=== PATIENT | female | born 1935 | race Caucasian/White ===

== ENCOUNTER 2019-02-04 20:44 | Emergency (ER) | payer MEDICARE, MEDICAID ==
[2019-02-04 21:17] LABS: #Basophils 0.1 thou/uL (0.0-0.2); #Eosinphils 0.1 thou/uL (0.0-0.7); #Lymphocytes 2.7 thou/uL (1.20-3.40); #Monocytes 0.9 thou/uL (0.11-0.59); %Basophils 0.8 % (0.0-1.0); %Eosinophils 1.3 % (0.0-10.0); %Monocytes 11.8 % (0.0-10.0); %Neutrophils 51.1 % (42.0-75.0); Hemoglobin 11.8 g/dL (12.0-16.0); Mean Corpuscular HGB CONC 32.9 g/dL (32.0-36.0); Mean Corpuscular Hemoglobin 29.5 pg (27.0-31.0); Mean Corpuscular Volume 89.7 fL (78.0-98.0); Mean Platelet Volume 8.4 fL (7.4-10.4); Platelet Count 291 thou/uL (130-400); RBC Distribution Width 13.9 % (11.5-14.5); Red Blood Cell (RBC) Count 4.01 mill/uL (4.20-5.40); White Blood Cell (WBC) Count 7.7 thou/uL (4.8-10.8)
[2019-02-04] MEDS ORDERED: Ondansetron PF 4 MG/2 ML Vial ONE (21:28)
[2019-02-04] MEDS ORDERED: Morphine 4 MG/ML VIAL ONE (21:28)
[2019-02-04 21:40] LABS: Bacteria/HPF 1+ HPF (None Seen); Bilirubin Negative (Negative); Blood, Urine 1+ (Negative); Clarity Clear (Clear); Glucose, Urine (Dipstick) Normal (Negative); Leukocyte 500 Leu/uL (Negative); Nitrite Negative (Negative); Protein, Urine (Dipstick) Negative (Neg-Trace); Squamous Epithelial 0-3 HPF (0-3); Urobilinogen Normal mg/dL (Less than 2); WBC/HPF 21-50 HPF (0-3)
[2019-02-04 21:42] LABS: ALT (SGPT) 10 U/L (8-55); AST (SGOT) 18 U/L (5-34); Albumin 4.1 g/dL (3.4-4.8); Alkaline Phosphatase 109 U/L (40-150); Anion Gap 15 mmol/L (10-20); BUN (Urea Nitrogen) 11 mg/dL (9.8-20.1); Bilirubin, Total 0.2 mg/dL (0.2-1.2); Calc. Creatinine Clearance 0 mL/min (70-130); Calcium 10.8 mg/dL (7.8-10.44); Carbon Dioxide 24 mmol/L (23-31); Chloride 101 mmol/L (98-107); Estimated GFR-MDRD 87; Globulin 3.7 g/dL (2.4-3.5); Glucose 121 mg/dL (83-110); Potassium 3.9 mmol/L (3.5-5.1); Protein, Total 7.8 g/dL (6.0-8.3); Sodium 136 mmol/L (136-145)
--- NOTE | 2019-02-04 22:48 | CT ---
EXAM: CT ABDOMEN AND PELVIS HISTORY: Urinary tract infection. Sepsis. COMPARISON: 12/06/2014, 02/27/2016 Procedure: Multiple contiguous axial images were obtained and a CT of the abdomen and pelvis with IV contrast. C oronal reformats were performed. FINDINGS: Lower Chest: Persistent septal thickening and groundglass opacities in the lung bases. Vessels: Normal caliber aorta. Heart: Enlarged. No significant pericardial fluid. Abdomen: Portal vein:Patent Gallbladder: Surgically absent. There is reservoir effect with associated intra and extrahepatic bili mario dilatation. Liver: within normal limits. Pancreas: within normal limits. Spleen: within normal limits. Adrenals: within normal limits. Kidneys: Appropriate enhancement of the renal cortices. No evidence of right-sided obstructive uropat hy. There is a calcification in the left renal cortex measuring 1 cm. There are punctate nonobstructing calculi in the lower pole the left kidney measuring 0.1-0.3 cm respectively. There is a large calculus in the left renal pelvis, measuring 1.9 cm cranial caudal dimension. There is associated mild hydronephrosis. There is stranding and prominence of the left renal pelvis. There is associated mild enhancement of the left renal pelvis. There is mild dilatation of the proximal to mid left ureter with mild enhancement. No associated obstructing calculus in the left ureter. Peritoneum: No ascites or free air, no fluid collection. Bowel: Limited evaluation due to technique. No evidence of small bowel obstruction. Ileocecal junctio n is normal. Normal caliber appendix. Scattered fecal material in the colon. Extensive diverticulosis in the left hemicolon. No diverticulitis. Mesentery and Retroperitoneum: No enlarged mesenteric or retroperitoneal lymph nodes. Abdominal Wall: within normal limits. Pelvis: Reproductive Organs: Findings compatible with hysterectomy. Pelvis: within normal limits. Bladder: within normal limits. Bones: Remote compression fractures with vertebral plana are noted in the distal thoracic spine and u pper lumbar spine. Findings are similar to previous CT. IMPRESSION: 1. Mild left-sided hydronephrosis secondary to a calculus in the left renal pelvis. There is prominen ce of the left renal pelvis with mild enhancement. There is also enhancement and mild prominence of the proximal and mid left ureter. 2. Colby effect with the dilatation of the intra and extra hepatic biliary system. 3. Diverticulosis, without evidence of diverticulitis.
[2019-02-04] MEDS ORDERED: cefTRIAXone\\ROCEPHIN 1 GM VIAL ONE (23:49)
== END 2019-02-05 00:56 | disposition home or self-care (01) ==
LOC: ERS 20:44
DX: N39.0 Urinary tract infection, site not specified (principal); E03.9 Hypothyroidism, unspecified; D50.9 Iron deficiency anemia, unspecified; E78.5 Hyperlipidemia, unspecified; K21.9 Gastro-esophageal reflux disease without esophagitis; I10 Essential (primary) hypertension; M19.90 Unspecified osteoarthritis, unspecified site
CPT/HCPCS: 51701; 74177; 80053; 81003; 81015; 83605; 85025; 87077; 87086; 87186; 96365; 96375; A4353; J0696; J2270; J2405

== ENCOUNTER 2019-02-06 14:26 | Observation (INO) | payer MEDICARE, MEDICAID ==
[2019-02-06] MEDS ORDERED: Morphine 4 MG/ML VIAL ONE (15:50)
[2019-02-06] MEDS ORDERED: Cefepime 2 GM VIAL ONE (15:50)
[2019-02-06 16:33] LABS: #Eosinphils 0.1 thou/uL (0.0-0.7); #Lymphocytes 1.8 thou/uL (1.20-3.40); #Monocytes 0.7 thou/uL (0.11-0.59); #Neutrophils 4.1 thou/uL (1.40-6.50); %Basophils 0.7 % (0.0-1.0); %Eosinophils 1.9 % (0.0-10.0); %Lymphocytes 26.6 % (21.0-51.0); %Monocytes 10.8 % (0.0-10.0); %Neutrophils 60.1 % (42.0-75.0); Hemoglobin 11.2 g/dL (12.0-16.0); Mean Corpuscular HGB CONC 32.6 g/dL (32.0-36.0); Mean Corpuscular Hemoglobin 29.6 pg (27.0-31.0); Mean Corpuscular Volume 90.9 fL (78.0-98.0); Mean Platelet Volume 8.5 fL (7.4-10.4); Platelet Count 299 thou/uL (130-400); RBC Distribution Width 13.8 % (11.5-14.5); Red Blood Cell (RBC) Count 3.79 mill/uL (4.20-5.40); White Blood Cell (WBC) Count 6.9 thou/uL (4.8-10.8)
[2019-02-06 16:36] LABS: Bilirubin Negative (Negative); Blood, Urine Trace (Negative); Clarity Clear (Clear); Glucose, Urine (Dipstick) Normal (Negative); Leukocyte 250 Leu/uL (Negative); Nitrite Negative (Negative); Protein, Urine (Dipstick) Negative (Neg-Trace); RBC/HPF 0-3 HPF (0-3); Squamous Epithelial 0-3 HPF (0-3); Urobilinogen Normal mg/dL (Less than 2); WBC/HPF 21-50 HPF (0-3)
[2019-02-06 16:39] LABS: Bacteria/HPF None Seen HPF (None Seen)
[2019-02-06 16:56] LABS: ALT (SGPT) 72 U/L (8-55); AST (SGOT) 53 U/L (5-34); Albumin 3.8 g/dL (3.4-4.8); Alkaline Phosphatase 201 U/L (40-150); Anion Gap 13 mmol/L (10-20); BUN (Urea Nitrogen) 13 mg/dL (9.8-20.1); Bilirubin, Total 0.2 mg/dL (0.2-1.2); Calc. Creatinine Clearance 0 mL/min (70-130); Calcium 10.6 mg/dL (7.8-10.44); Carbon Dioxide 25 mmol/L (23-31); Chloride 98 mmol/L (98-107); Estimated GFR-MDRD 87; Globulin 3.5 g/dL (2.4-3.5); Glucose 121 mg/dL (83-110); Lipase 13 U/L (8-78); Potassium 3.9 mmol/L (3.5-5.1); Protein, Total 7.3 g/dL (6.0-8.3); Sodium 132 mmol/L (136-145)
--- NOTE | 2019-02-06 18:06 | CT ---
CT ABDOMEN NONCONTRAST CT PELVIS NONCONTRAST: (urolithiasis protocol) DATE: 02/06/19 at 5:44 p.m. HISTORY: 83-year-old female with flank pain, generalized abdominal pain, and anorexia. COMPARISON: 02/04/19. TECHNIQUE: IV injection of iodinated contrast media: none Oral contrast media: none FINDINGS: Other than for urolithiasis, the lack of IV and oral contrast limits the evaluation. Again noted are the several calculi in the left kidney. Again noted is the moderate sized calculus wi thin the left renal pelvis. There is mild dilation of the left renal collecting system and fat strand ing representing edema at the left renal sinus. No calculus or hydronephrosis in the right kidney. Th ere are actually two calculi in the left renal pelvis, moderate sized one and a small one. They do no t reach the UPJ, where the level of obstruction appears to be. There is no calculus in the urinary bl adder which has thin, normal sharma. A large number of diverticula throughout the descending and sigmo id colon without diverticulitis. Large amount of stool throughout the colon. Diffuse dilation of the biliary tree status post cholecystectomy. No other abnormality identified, within the limitations of a noncontrast scan, involving the liver, right kidney, adrenals, pancreas, or spleen. No small bowel dilation. No pneumoperitoneum or ascites. No interval change overall. IMPRESSION: 1. Left nephrolithiasis, including calculi in the left renal lower pole, plus at least two calc melany in the left renal pelvis. 2. Mild left hydronephrosis. The degree of hydronephrosis is such that percutaneous nephrostomy would be technically very difficult. 3. No significant interval change since 02/04/19. JN Americo POS: TPC
[2019-02-06] MEDS ORDERED: Ondansetron ODT 4 MG TAB SL PRN (19:15)
[2019-02-06] MEDS ORDERED: Acetaminophen 325 MG TAB PO PRN (19:15)
[2019-02-06] MEDS ORDERED: Ondansetron PF 4 MG/2 ML Vial IVP PRN ×2 (19:15→19:52)
[2019-02-06] MEDS ORDERED: Morphine 4 MG/ML VIAL SLOW IVP PRN ×2 (19:16→20:04)
[2019-02-06] MEDS ORDERED: Senokot S 8.6-50 MG TAB PO PRN (19:52)
[2019-02-06] MEDS ORDERED: Guaifenesin DM 100-10/5 ML UDCUP PO PRN (19:52)
[2019-02-06] MEDS ORDERED: Lidocaine 5% Patch TD STA (20:04)
--- NOTE | 2019-02-06 20:58 | HP ---
REASON FOR ADMISSION: Abdominal pain. HISTORY OF PRESENTING ILLNESS: The patient gives history of having a bandlike abdominal pain in both upper quadrants. No complaints of nausea or vomiting. She has had known history of a large stone in the left side. She has seen Dr. Tolliver for this in the past. The patient is not a candidate for staged procedure for removing her 2 cm large stone in the left renal pelvis per family. They have talked about possible nephrostomy tube with lithotripsy/crushing of stones as a choice, which the family are contemplating. This bandlike abdominal pain has been there for the last 1 week. She had come 2 days back to the emergency room and was found to have had UTI and was given Macrobid. She has taken 4 tablets of it, but her abdominal pain has remained same. No complaints of urinary frequency or urgency. She wears an adult diaper. She is essentially wheelchair and bed bound. The [id number] who is here at bedside has mentioned that previous oral tablets have not worked for her and in fact, she has become septic in the past with UTI. All of this concerned them, hence came to emergency room. On arrival here, patient has had normal vital signs and normal white count. Dr. Baez has spoken to Dr. Figueredo , urologist, who will evaluate the patient in the morning. PAST MEDICAL AND SURGICAL HISTORY: History of nephrolithiasis in the past with recurrent UTIs. She has a large left renal calculi and is not a candidate for staged procedure for removing this. Hypertension, hypothyroidism, dyslipidemia, cholecystectomy, left knee surgery, hysterectomy, compression fracture involving T11, L2, L4 with diffuse osteopenia. Prior cystoscopy with right ureteral stent , chronic bedridden and wheelchair-bound status from July of 2014, left total knee replacement. PERSONAL HISTORY: Does not abuse alcohol or drugs. No history of smoking. FAMILY HISTORY: Mother in her 90s. Father in his early 80s, both of natural causes. CODE STATUS: Do not attempt to resuscitate. This was discussed with the patient at bedside and her POA, son and [id number] at bedside. CURRENT MEDICATIONS: The patient is on: 1. Norvasc 10 mg daily. 2. Aspirin 81 mg daily. 3. Colace 100 mg daily. 4. Lopid 600 mg daily. 5. Hydrocodone p.r.n. 6. Levothyroxine 75 mcg p.o. daily. 7. Lovastatin 20 mg p.o. daily. 8. Multivitamin 1 tablet once daily. 9. Oxybutynin extended release 10 mg daily. 10. Protonix 40 mg daily. 11. MiraLAX 17 g daily. ALLERGIES: TO RANITIDINE AND CODEINE. REVIEW OF SYSTEMS: CONSTITUTIONAL: Negative for weight loss or gain, ability to conduct usual activities. SKIN: Negative for rash, itching. EYES: Negative for double vision, pain. ENT/MOUTH: Negative for nose bleeding, neck stiffness, pain, tenderness. CARDIOVASCULAR: Negative for palpitations, dyspnea on exertion, orthopnea. RESPIRATORY: Negative for shortness of breath, wheezing, cough, hemoptysis, fever or night sweats. GASTROINTESTINAL: Negative for poor appetite, abdominal pain, heartburn, nausea , vomiting, constipation, or diarrhea. GENITOURINARY: Negative for urgency, frequency, dysuria, nocturia. MUSCULOSKELETAL: Negative for pain, swelling. NEUROLOGIC/PSYCHIATRIC: Negative for anxiety, depression. ALLERGY/IMMUNOLOGIC: Negative for skin rash, bleeding tendency. PHYSICAL EXAMINATION: GENERAL: The patient is 83-year-old female who is currently not in any acute distress. VITAL SIGNS: Blood pressure 120/76, pulse 86 per minute, respiratory rate 20 per minute, temperature 98.7 degrees Fahrenheit, saturating 95% on room air. NECK: Supple. No elevated JVD. HEENT: Eyes; extraocular muscles intact. Pupils reacting to light. Oral cavity mucous membranes are moist. No exudates or congestion. CARDIOVASCULAR: S1-S2 heard, regular rhythm. RESPIRATORY: Air entry 1+ bilateral. No rales, rhonchi. ABDOMEN: Soft bowel sounds heard. The patient has mild CVA tenderness in the left side. No rigidity or guarding. EXTREMITIES: No peripheral edema or calf tenderness. VASCULAR SYSTEM: Peripheral pulses 1+ bilateral. No ischemic ulcerations or gangrene. CENTRAL NERVOUS SYSTEM: No gross focal deficits noted. The patient is alert, awake, and oriented. Well psychiatric system. The patient's mood is euthymic. No hallucinations or delusions. LABORATORY DATA: White count of 6.9, H and H 11 and 34, platelet count 299 with 60% neutrophils, MCV is 90. Sodium 132, serum bicarb 25, BUN 13, creatinine 0.6, serum glucose 121. AST, ALT 53 and 72, alkaline phosphatase is 201, albumin is 3.8, and lipase is 13. UA shows shows positive leukocyte esterase, 21-50 wbc's. No bacteria seen. Urine culture drawn on 02/04/2019 is growing Klebsiella more than 100,000 , sensitive to all antibiotics except nitrofurantoin. CT of the abdomen and pelvis done shows mild left sided hydronephrosis secondary to a calculus in the left renal pelvis. There is prominence of the left renal pelvis with mild enhancement. There is also mild enhancement and prominence of the proximal and mid left ureteral reservoir effect with the dilatation of the intra and extrahepatic biliary system. Diverticulosis without evidence of diverticulitis. That was the CAT scan report on 02/04/2019. A repeat CAT scan stone protocol done today shows left nephrolithiasis including calculi in the left renal lower pole plus at least 2 calculi in the left renal pelvis. There is mild left hydronephrosis. The degree of hydronephrosis is such that percutaneous nephrostomy would be technically very difficult. CLINICAL IMPRESSION AND PLAN: The patient will be under observation on medical floor for Klebsiella urinary tract infection with history of chronic nephrolithiasis and mild left hydronephrosis. Her bandlike abdominal pain in the upper quadrants is likely related to the thoracic compression fracture. She has mild left costovertebral angle tenderness as well. The patient has had these pains for almost a week now. There is no obstructive uropathy on the CAT scan as such. Dr. Mchugh who is on-call for urology has been consulted from ER. Based on cultures, we will place her on cefepime 1 g q.12 for now and later can be given oral quinolones. Repeat blood and urine cultures have been obtained in the ER. We will continue her Norvasc, Lopid, levothyroxine, lovastatin, multivitamin, Protonix and oxybutynin as before. Gentle hydration with normal saline at 70 mL per hour. Morphine p.r.n. for pain and we will also add lidocaine patch to help with the thoracic compression fracture. We will await a urology opinion regarding her chronic stones.. If no intervention is planned, palliative care will be consulted as she is at risk for recurrent uti and sepsis with gm-ve organisms. Job ID: [id number] [facility]
[2019-02-06] MEDS ORDERED: Melatonin 3 MG TAB PO PRN (21:10)
[2019-02-06] MEDS ORDERED: Amlodipine 10 MG TAB PO SCH (21:15)
[2019-02-06] MEDS: Lidocaine 5% Patch TD SCH (21:40)
[2019-02-06] MEDS: Acetaminophen 325 MG TAB PO PRN (21:40)
[2019-02-06] MEDS: Lovastatin 20 MG TAB PO SCH (21:41)
[2019-02-06] MEDS: Sodium Chloride 0.9% 1,000 ML IV SCH (21:48)
[2019-02-06] MEDS ORDERED: Cefepime 2 GM in Sodium Chloride 0.9% 100 ML IVPB SCH (23:59)
[2019-02-07 02:18] VITALS: BMI 26.4
[2019-02-07] MEDS ORDERED: Cefepime 1 GM in Sodium Chloride 0.9% 100 ML IVPB SCH (04:00)
[2019-02-07] MEDS: Levothyroxine Sodium 75 MCG TAB PO SCH (04:22)
[2019-02-07] MEDS: Morphine 2 MG/ML SYRINGE SLOW IVP PRN ×5 (04:23→21:52)
[2019-02-07 05:12] LABS: #Basophils 0.1 thou/uL (0.0-0.2); #Eosinphils 0.2 thou/uL (0.0-0.7); #Lymphocytes 2.2 thou/uL (1.20-3.40); #Monocytes 0.8 thou/uL (0.11-0.59); #Neutrophils 3.2 thou/uL (1.40-6.50); %Eosinophils 2.3 % (0.0-10.0); %Lymphocytes 34.5 % (21.0-51.0); %Monocytes 12.8 % (0.0-10.0); %Neutrophils 49.3 % (42.0-75.0); Hemoglobin 11.3 g/dL (12.0-16.0); Mean Corpuscular Hemoglobin 29.3 pg (27.0-31.0); Mean Corpuscular Volume 91.8 fL (78.0-98.0); Mean Platelet Volume 8.1 fL (7.4-10.4); Platelet Count 302 thou/uL (130-400); RBC Distribution Width 13.8 % (11.5-14.5); Red Blood Cell (RBC) Count 3.84 mill/uL (4.20-5.40); White Blood Cell (WBC) Count 6.4 thou/uL (4.8-10.8)
[2019-02-07 05:34] LABS: Anion Gap 12 mmol/L (10-20); BUN (Urea Nitrogen) 7 mg/dL (9.8-20.1); Calc. Creatinine Clearance 71 mL/min (70-130); Calcium 9.2 mg/dL (7.8-10.44); Carbon Dioxide 25 mmol/L (23-31); Chloride 103 mmol/L (98-107); Estimated GFR-MDRD Greater than 90; Glucose 95 mg/dL (83-110); Potassium 3.4 mmol/L (3.5-5.1); Sodium 137 mmol/L (136-145)
[2019-02-07] MEDS: Polyethylene Glycol 3350 17 GM Packet PO SCH (08:56)
[2019-02-07] MEDS: Oxybutynin ER 5 MG TAB PO SCH (08:56)
[2019-02-07] MEDS: Multivit, Therapeutic 1 TAB PO SCH (08:56)
[2019-02-07] MEDS: Gemfibrozil 600 MG TAB PO SCH (08:57)
[2019-02-07] MEDS: Amlodipine 10 MG TAB PO SCH (08:57)
[2019-02-07] MEDS: Acetaminophen 325 MG TAB PO PRN ×2 (09:04→22:00)
[2019-02-07] MEDS: Enoxaparin Sodium 30 MG/0.3 ML SYRINGE SC SCH (09:31)
[2019-02-07] MEDS: Lidocaine Patch Removal TOP SCH (09:31)
--- NOTE | 2019-02-07 11:20 | CON ---
DATE OF CONSULTATION: 02/07/2019 REASON FOR CONSULTATION: Left renal calculi and urinary tract infection. REQUESTING PHYSICIAN: Dr. Guajardo. HISTORY OF PRESENT ILLNESS: Ms. Ryan is an 83-year-old female with history of urolithiasis. Her urologist is Dr. Tolliver. Three years ago, the patient underwent removal of a small distal right ureteral calculus. At that time, she was found to have a large left-sided nonobstructing stone burden. The family has elected to manage this expectantly, given concern over her ability to tolerate anesthesia for either staged ureteroscopy versus percutaneous nephrolithotomy. The patient has been followed and has done rather well. She was seen three days ago in the emergency department for some low abdominal pain. She was diagnosed with urinary tract infection and was sent now on Macrobid. She did not have improvement of her symptoms. She is essentially wheelchair and bed bound. She does not ambulate. At that time, a CT scan was performed, which demonstrated a 2 cm left renal pelvis stone and mild dilation of the left renal collecting system. There was also some lower pole stone as well. The patient's urine culture ended up growing Klebsiella with intermediate sensitivity to Macrobid. The patient was given IV antibiotics, but given her significant low abdominal pain and concern for complicated UTI, admission was recommended. A repeat CT scan demonstrated stable appearance of the stones with no worsening of hydronephrosis or dilation of the collecting system. The patient has been afebrile. Reports some nausea but no vomiting. No gross hematuria. The patient voids into a diaper. There are no other complaints. REVIEW OF SYSTEMS: Full 12-point review of systems was performed and was negative other than that mentioned in HPI. PAST MEDICAL HISTORY: Nephrolithiasis, hypertension, hypothyroidism, dyslipidemia. PAST SURGICAL HISTORY: Stone removal from right distal ureter with right ureteral stent, left total knee replacement, cholecystectomy, and hysterectomy. FAMILY HISTORY: Noncontributory. SOCIAL HISTORY: No smoking history. No alcohol use. She lives at home with family. MEDICATIONS: 1. Norvasc. 2. Aspirin 81 mg. 3. Colace. 4. Lopid. 5. Hydrocodone as needed. 6. Synthroid. 7. Lovastatin. 8. Multivitamin. 9. Oxybutynin ER 10 mg. 10. Protonix. 11. MiraLAX. ALLERGIES: RANITIDINE AND CODEINE. PHYSICAL EXAMINATION: VITAL SIGNS: Temperature is 97.6, pulse is 70 to 90, blood pressure 169/73, respirations 18, oxygen saturation 100% on room air. GENERAL: She is alert and oriented, in no apparent distress. HEENT: Normocephalic, atraumatic. NECK: Supple. No masses or lymphadenopathy. CARDIOVASCULAR: Regular rate and rhythm. PULMONARY: Breathing unlabored. No wheezing. ABDOMEN: Soft, mild tenderness to palpation over lower abdomen. No rebound or guarding. Nondistended. No suprapubic tenderness to palpation. No CVA tenderness. EXTREMITIES: Warm and well perfused. No edema. NEUROLOGIC: No focal deficits. LABORATORY DATA: White blood cell count 6.4, hemoglobin 11.3, hematocrit 35.3, platelets 302. Sodium 137, potassium 3.4, chloride 103, bicarbonate 25, BUN 7, creatinine 0.55. Urinalysis on 02/06/2019 demonstrates trace blood and 21 to 50 white blood cells per high-power field, but no bacteria. Urine culture from 02/06/2019 demonstrates no growth at 12 hours. However, culture from 02/04/2019 demonstrated Klebsiella pneumoniae with intermediate sensitivity to Macrobid, but otherwise pansensitive. RADIOLOGY DATA: CT of the abdomen and pelvis on 02/06/2019, with results as stated above. I have reviewed the films and agreed with the radiologist's interpretation. ASSESSMENT: An 83-year-old female with urinary tract infection, enlarged minimally obstructing left renal stone burden, which is chronic. PLAN: I reviewed the patient's clinical situation with her family at length. Discussed different options for complete decompression of the left renal collecting system. They routinely see Dr. Tolliver and would like to discuss this with him as well. We discussed placement of a percutaneous nephrostomy tube without definitive management of the stone burden, which would help control her pain and keep the collecting system decompressed to potentially decrease incidence of urinary tract infections. They will consider this option and discuss this with Dr. Tolliver when he returns tomorrow. Thank you, I appreciate Hospitalist Service assistance in caring for this patient. Job ID: [id number]
[2019-02-07] MEDS: Sodium Chloride 0.9% 1,000 ML IV SCH (11:44)
[2019-02-07] MEDS: cefTRIAXone\\ROCEPHIN 1 GM in Sodium Chloride 0.9% 100 ML IVPB SCH (15:23)
--- NOTE | 2019-02-07 15:41 | PDOC.PN ---
- Subjective Encounter Start Date: 02/07/19 Encounter Start Time: 15:39 Ms. Ryan was seen today in follow-up of Nephrolithiasis, and UTI. She continues to have abdominal pain, but she admits it is a bit better today than yesterday. She has some nausea, but overall ok. - Objective Resuscitation Status - Order Detail: 02/06/19 19:48 Resuscitation Status Routine Resuscitation Status: DNAR: NO Resuscitation Discussed with: d/w patient and POA son at bedside in room 7 in er MAR Reviewed: Yes Vital Signs & Weight: Vital Signs (12 hours) Temp Pulse Resp BP BP Pulse Ox 02/07/19 12:00 98.2 F 71 18 162/73 H 97 02/07/19 08:57 98 169/73 H 02/07/19 08:00 97.6 F 98 18 169/73 H 100 02/07/19 04:00 97.7 F 70 18 168/73 H 97 Weight Weight 130 lb 15.273 oz I&O: 02/06/19 02/07/19 02/08/19 06:59 06:59 06:59 Intake Total 1105 200 Output Total 1300 Balance -195 200 Result Diagrams: 02/07/19 04:46 02/07/19 04:46 Phys Exam - Physical Examination HEENT: PERRLA Respiratory: no wheezing, no rales, no rhonchi, clear to auscultation bilateral Cardiovascular: RRR, no significant murmur, no rub Gastrointestinal: soft, positive bowel sounds + diffuse tenderness, no rebound or guarding Musculoskeletal: no edema, pulses present Dx/Plan (1) Urinary tract infection Status: Acute (2) Hypertension Code(s): I10 - ESSENTIAL (PRIMARY) HYPERTENSION Status: Chronic (3) Nephrolithiasis Status: Acute - Plan * UTI- urine culture is growing Klebsiella- which is sensitive to cephalosporins - will downgrade her antibiotic to Rocephin * Nephrolithiasis- awaiting evaluation by Dr. Tolliver * HTN- blood pressure is elevated- will re-start Metoprolol *
[2019-02-07] MEDS: Melatonin 3 MG TAB PO PRN (21:53)
[2019-02-07] MEDS: Lovastatin 20 MG TAB PO SCH (21:53)
[2019-02-07] MEDS: Metoprolol Tartrate 25 MG TAB PO SCH (21:53)
[2019-02-07] MEDS: Lidocaine 5% Patch TD SCH (21:56)
[2019-02-08] MEDS: Morphine 2 MG/ML SYRINGE SLOW IVP PRN ×3 (05:29→20:53)
[2019-02-08] MEDS: Sodium Chloride 0.9% 1,000 ML IV SCH ×2 (05:30→15:52)
[2019-02-08] MEDS: Levothyroxine Sodium 75 MCG TAB PO SCH (05:32)
[2019-02-08] MEDS: Acetaminophen 325 MG TAB PO PRN ×3 (09:17→20:55)
[2019-02-08] MEDS: Amlodipine 10 MG TAB PO SCH (09:17)
[2019-02-08] MEDS: Metoprolol Tartrate 25 MG TAB PO SCH ×2 (09:18→20:56)
[2019-02-08] MEDS: Gemfibrozil 600 MG TAB PO SCH (09:18)
[2019-02-08] MEDS: Polyethylene Glycol 3350 17 GM Packet PO SCH (09:18)
[2019-02-08] MEDS: Lidocaine Patch Removal TOP SCH (09:18)
[2019-02-08] MEDS: Multivit, Therapeutic 1 TAB PO SCH (09:18)
[2019-02-08] MEDS: Oxybutynin ER 5 MG TAB PO SCH (09:18)
[2019-02-08] MEDS: Enoxaparin Sodium 30 MG/0.3 ML SYRINGE SC SCH (09:18)
[2019-02-08] MEDS: cefTRIAXone\\ROCEPHIN 1 GM in Sodium Chloride 0.9% 100 ML IVPB SCH (14:13)
--- NOTE | 2019-02-08 15:51 | PDOC.PN ---
- Subjective Encounter Start Date: 02/08/19 Encounter Start Time: 15:50 Ms. Ryan was seen today in follow-up of UTI and Nephrolithiasis. She says she is feeling a bit better today. Abdominal pain has improved - Objective Resuscitation Status - Order Detail: 02/06/19 19:48 Resuscitation Status Routine Resuscitation Status: DNAR: NO Resuscitation Discussed with: d/w patient and POA son at bedside in room 7 in er MAR Reviewed: Yes Vital Signs & Weight: Vital Signs (12 hours) Temp Pulse Resp BP BP Pulse Ox 02/08/19 11:53 98.3 F 55 L 16 147/63 H 96 02/08/19 09:17 70 183/65 H 02/08/19 08:00 98 02/08/19 07:20 97.8 F 70 18 183/65 H 98 02/08/19 04:00 97.9 F 59 L 15 171/65 H 97 Weight Weight 130 lb 15.273 oz I&O: 02/07/19 02/08/19 02/09/19 06:59 06:59 06:59 Intake Total 1105 1780 400 Output Total 1300 850 700 Balance -195 930 -300 Result Diagrams: 02/07/19 04:46 02/07/19 04:46 Phys Exam - Physical Examination HEENT: PERRLA Respiratory: no wheezing, no rales, no rhonchi, clear to auscultation bilateral Cardiovascular: RRR, no significant murmur, no rub Gastrointestinal: soft, non-tender, no distention, positive bowel sounds Musculoskeletal: no edema Neurological: non-focal Dx/Plan (1) Urinary tract infection Status: Acute (2) Hypertension Code(s): I10 - ESSENTIAL (PRIMARY) HYPERTENSION Status: Chronic (3) Nephrolithiasis Status: Acute - Plan * UTI- urine culture from 02/04 is growing Klebsiella which is henao-sensitive * Can consider transition to oral antibiotics * Nephrolithiasis- await recommendations from Dr. Tolliver- ? home today. * HTN- blood pressure is a bit elevated- will continue Amlodipine and Metoprolol , and PRM medications- further adjustments can be made by her Primary Care Provider
[2019-02-08] MEDS: Lovastatin 20 MG TAB PO SCH (20:56)
[2019-02-08] MEDS: Lidocaine 5% Patch TD SCH (20:56)
[2019-02-08] MEDS: Melatonin 3 MG TAB PO PRN (20:56)
[2019-02-09] MEDS: Levothyroxine Sodium 75 MCG TAB PO SCH (05:47)
[2019-02-09] MEDS: Sodium Chloride 0.9% 1,000 ML IV SCH (05:47)
[2019-02-09] MEDS: Morphine 2 MG/ML SYRINGE SLOW IVP PRN (05:47)
[2019-02-09] MEDS: Oxybutynin ER 5 MG TAB PO SCH (08:33)
[2019-02-09] MEDS: Multivit, Therapeutic 1 TAB PO SCH (08:34)
[2019-02-09] MEDS: Amlodipine 10 MG TAB PO SCH (08:34)
[2019-02-09] MEDS: Gemfibrozil 600 MG TAB PO SCH (08:34)
[2019-02-09] MEDS: Metoprolol Tartrate 25 MG TAB PO SCH ×2 (08:35→20:16)
[2019-02-09] MEDS: Polyethylene Glycol 3350 17 GM Packet PO SCH (08:37)
[2019-02-09] MEDS: Lidocaine Patch Removal TOP SCH (08:42)
[2019-02-09] MEDS: Enoxaparin Sodium 30 MG/0.3 ML SYRINGE SC SCH (08:42)
--- NOTE | 2019-02-09 14:35 | PDOC.PN ---
- Subjective Encounter Start Date: 02/09/19 Encounter Start Time: 14:33 Subjective: Feeling better. Abdominal pain has improved. No fever -: Admitted with worsening abdominal pain and found to have UTI/stones - Objective Resuscitation Status - Order Detail: 02/06/19 19:48 Resuscitation Status Routine Resuscitation Status: DNAR: NO Resuscitation Discussed with: d/w patient and POA son at bedside in room 7 in er Vital Signs & Weight: Vital Signs (12 hours) Temp Pulse Resp BP Pulse Ox 02/09/19 12:49 98.7 F 62 16 160/67 H 95 02/09/19 08:34 84 02/09/19 07:31 98.7 F 84 18 181/72 H 97 02/09/19 04:23 172/81 H 02/09/19 04:22 98.1 F 53 L 16 193/67 H 99 Weight Weight 130 lb 15.273 oz I&O: 02/08/19 02/09/19 02/10/19 06:59 06:59 06:59 Intake Total 1780 3110 Output Total 850 1750 Balance 930 1360 Result Diagrams: 02/07/19 04:46 02/07/19 04:46 Phys Exam - Physical Examination Constitutional: NAD elderly female in no distress HEENT: moist MMs Neck: no JVD, supple Respiratory: no wheezing, no rales, no rhonchi fair air entry bilaterally Cardiovascular: RRR Gastrointestinal: soft, non-tender, no distention, positive bowel sounds Musculoskeletal: no edema, pulses present Neurological: non-focal, moves all 4 limbs Psychiatric: A&O x 3 Dx/Plan (1) Physical deconditioning Code(s): R53.81 - OTHER MALAISE Status: Acute (2) Hydronephrosis Code(s): N13.30 - UNSPECIFIED HYDRONEPHROSIS Status: Acute (3) Nephrolithiasis Status: Acute (4) Urinary tract infection Status: Acute (5) Hypertension Code(s): I10 - ESSENTIAL (PRIMARY) HYPERTENSION Status: Chronic - Plan DC IV fluid. -: Start oral levaquin and DC IV rocephin. -: Consult PT. -: Awaiting urology input. * .
[2019-02-09] MEDS: Lovastatin 20 MG TAB PO SCH (20:17)
[2019-02-09] MEDS: Acetaminophen 325 MG TAB PO PRN (20:21)
[2019-02-09] MEDS: Lidocaine 5% Patch TD SCH (20:23)
[2019-02-09] MEDS: Melatonin 3 MG TAB PO PRN (22:14)
[2019-02-10] MEDS: Levothyroxine Sodium 75 MCG TAB PO SCH (05:36)
[2019-02-10 06:40] LABS: #Basophils 0.1 thou/uL (0.0-0.2); #Eosinphils 0.2 thou/uL (0.0-0.7); #Lymphocytes 2.4 thou/uL (1.20-3.40); #Monocytes 0.8 thou/uL (0.11-0.59); #Neutrophils 3.3 thou/uL (1.40-6.50); %Basophils 0.9 % (0.0-1.0); %Eosinophils 2.9 % (0.0-10.0); %Lymphocytes 35.9 % (21.0-51.0); %Monocytes 11.2 % (0.0-10.0); Hemoglobin 10.7 g/dL (12.0-16.0); Mean Corpuscular HGB CONC 31.6 g/dL (32.0-36.0); Mean Corpuscular Hemoglobin 28.8 pg (27.0-31.0); Mean Corpuscular Volume 91.3 fL (78.0-98.0); Mean Platelet Volume 8.1 fL (7.4-10.4); Platelet Count 317 thou/uL (130-400); RBC Distribution Width 13.9 % (11.5-14.5); Red Blood Cell (RBC) Count 3.72 mill/uL (4.20-5.40); White Blood Cell (WBC) Count 6.8 thou/uL (4.8-10.8)
[2019-02-10] MEDS: Enoxaparin Sodium 30 MG/0.3 ML SYRINGE SC SCH (06:57)
[2019-02-10 07:03] LABS: Anion Gap 9 mmol/L (10-20); BUN (Urea Nitrogen) 9 mg/dL (9.8-20.1); Calc. Creatinine Clearance 68 mL/min (70-130); Calcium 10.2 mg/dL (7.8-10.44); Carbon Dioxide 28 mmol/L (23-31); Chloride 102 mmol/L (98-107); Estimated GFR-MDRD Greater than 90; Glucose 96 mg/dL (83-110); Potassium 3.1 mmol/L (3.5-5.1); Sodium 136 mmol/L (136-145)
[2019-02-10 07:55] VITALS: BP 153/61
[2019-02-10] MEDS: Amlodipine 10 MG TAB PO SCH (08:22)
[2019-02-10] MEDS: Metoprolol Tartrate 25 MG TAB PO SCH (08:22)
[2019-02-10] MEDS: Multivit, Therapeutic 1 TAB PO SCH (08:22)
[2019-02-10] MEDS: Gemfibrozil 600 MG TAB PO SCH (08:22)
[2019-02-10] MEDS: Oxybutynin ER 5 MG TAB PO SCH (08:26)
[2019-02-10] MEDS: Acetaminophen 325 MG TAB PO PRN (08:29)
[2019-02-10] MEDS: Lidocaine 5% Patch TD SCH (08:33)
[2019-02-10] MEDS: Polyethylene Glycol 3350 17 GM Packet PO SCH (08:40)
[2019-02-10] MEDS: Lidocaine Patch Removal TOP SCH (08:45)
[2019-02-10 09:13] LABS: ALT (SGPT) 124 U/L (8-55); AST (SGOT) 50 U/L (5-34); Albumin 3.4 g/dL (3.4-4.8); Alkaline Phosphatase 220 U/L (40-150); Bilirubin, Direct 0.2 mg/dL (0.1-0.3); Bilirubin, Total 0.3 mg/dL (0.2-1.2); Magnesium 1.8 mg/dL (1.6-2.6); Protein, Total 6.3 g/dL (6.0-8.3)
--- NOTE | 2019-02-10 09:51 | PRG ---
DATE OF SERVICE: 02/10/2019 SUBJECTIVE: The patient states she is feeling okay. She still has a little bit of pain in her left side, but it has improved since starting the antibiotics. She is not having any more fevers. She denies any severe pain, nausea, or vomiting. OBJECTIVE: VITAL SIGNS: Temperature 97.8, pulse 70, respirations 18, blood pressure 183/65, saturation 98% on room air. GENERAL: No apparent distress. Communicating and alert. CARDIOVASCULAR: Regular rate and rhythm. ABDOMEN: Soft, mildly tender to palpation on the left. Nondistended. Positive bowel sounds. : No catheter. Full genitalia exam deferred. EXTREMITIES: No clubbing, cyanosis or edema. LABORATORY DATA: On Laboratory evaluation, the full set of labs are in the [facility] DX system, which I have reviewed. Of note, there are no new labs for today. ASSESSMENT AND PLAN: An 83-year-old [place] female with nephrolithiasis with an episode of pyelonephritis without obstruction. Her most recent CT does not demonstrate any type of stone that is obstructing at the moment. There is no hydronephrosis and nephrostomy tube would be difficult. I would not necessarily recommend a nephrostomy tube at this time unless she develops an obstructing stone. In that situation, the family has requested that she did not undergo any more surgical procedures and that we would place a nephrostomy tube, which she would keep in indefinitely for the rest of her life with scheduled changes on an outpatient setting. As for now, we are not sure if the stones are colonized or if they will definitely get become infective stones versus normal treatment of pyelonephritis episode. In either case, I would recommend transition to oral antibiotics in the hospital to ensure that she is tolerating her medication with good control of her infection. She should probably be treated for 2 weeks for a presumed pyelonephritis episode. I will continue to monitor and ensure that she is doing okay. She probably can be discharged once she is on an oral regimen without fevers and good control of her infection. I will see her in an outpatient setting. Job ID: [id number]
[2019-02-10] MEDS: Potassium Chloride 20 MEQ TAB PO SCH ×2 (11:22→12:05)
--- NOTE | 2019-02-10 12:29 | PDOC.PN ---
- Subjective Encounter Start Date: 02/10/19 Encounter Start Time: 12:28 Subjective: Admitted with abdominal pain which has improved. -: tolerating oral intake. - Objective Resuscitation Status - Order Detail: 02/06/19 19:48 Resuscitation Status Routine Resuscitation Status: DNAR: NO Resuscitation Discussed with: d/w patient and POA son at bedside in room 7 in er Vital Signs & Weight: Vital Signs (12 hours) Temp Pulse Resp BP Pulse Ox 02/10/19 08:22 56 L 02/10/19 07:20 98.5 F 56 L 18 153/61 H 18 L 02/10/19 04:00 97.4 F L 56 L 15 99 Weight Weight 130 lb 15.273 oz I&O: 02/09/19 02/10/19 02/11/19 06:59 06:59 06:59 Intake Total 3110 500 Output Total 1750 600 Balance 1360 -100 Result Diagrams: 02/10/19 05:58 02/10/19 05:58 Phys Exam - Physical Examination Constitutional: NAD HEENT: moist MMs Neck: no JVD, supple Respiratory: no wheezing, no rales, no rhonchi, clear to auscultation bilateral Cardiovascular: RRR soft systolic murmur. Gastrointestinal: soft, no distention, positive bowel sounds mild RUQ tenderness Musculoskeletal: no edema, pulses present Neurological: non-focal, moves all 4 limbs Psychiatric: normal affect, A&O x 3 Dx/Plan (1) Physical deconditioning Code(s): R53.81 - OTHER MALAISE Status: Acute (2) Hydronephrosis Code(s): N13.30 - UNSPECIFIED HYDRONEPHROSIS Status: Acute (3) Nephrolithiasis Status: Acute (4) Urinary tract infection Status: Acute (5) Hypertension Code(s): I10 - ESSENTIAL (PRIMARY) HYPERTENSION Status: Chronic (6) Abnormal LFTs Code(s): R94.5 - ABNORMAL RESULTS OF LIVER FUNCTION STUDIES Status: Acute (7) Hypokalemia Code(s): E87.6 - HYPOKALEMIA Status: Acute - Plan Replete serum potassium -: Get Liver US. -: Continue oral antibiotics. -: Re evaluate with liver US. * .
--- NOTE | 2019-02-10 15:21 | ULT ---
Gallbladder ultrasound: Multiple grayscale images of right upper quadrant obtained according to protocol. INDICATION: Pain FINDINGS: Liver: No focal mass Gallbladder: Absent Common bile duct is 1.6 cm which may relate to reservoir effect Ascites: None IMPRESSION: Surgically absent gallbladder. Prominent common duct may relate to reservoir effect. Recommend correl ation with biliary laboratory values
[2019-02-10 16:45] VITALS: TEMP 98.1
--- NOTE | 2019-02-11 08:05 | DIS ---
DATE OF ADMISSION: 02/06/2019 DATE OF DISCHARGE: 02/10/2019 PRIMARY CARE PHYSICIAN: Bacilio Gomes MD DISCHARGE DIAGNOSES: 1. Left-sided nephrolithiasis with mild hydronephrosis. 2. Urinary tract infection. 3. Abnormal LFTs. 4. Hypokalemia. 5. Hypertension. 6. Physical deconditioning. 7. Chronic debilitation. 8. Hypothyroidism. CONSULT: Urology. HOSPITAL COURSE: An 83-year-old female with known history of nephrolithiasis, admitted with band-like abdominal pain in both upper quadrants. The patient was recently seen in the ER and was started on Macrobid for urinary tract infection. CT scan of the abdomen and pelvis performed again showed left nephrolithiasis with mild hydronephrosis, but no significant change from prior scan of February 04, 2019. Impression of nephrolithiasis with mild obstruction and urinary tract infection was made and the patient was started on IV antibiotics. Urology consult was obtained and conservative treatment for acute infection was recommended with a view to repeating CT scan and offering invasive treatment if needed down the line. The patient also was found to have elevated liver enzymes, hence was evaluated with ultrasound of the abdomen, which showed dilatation of common bile duct with no obvious obstruction, which was thought to be reservoir effect as the patient is status post cholecystectomy. The patient improved clinically with improvement of pain and was subsequently discharged home to complete oral antibiotics. Of note, on prior visit to the ER on February 04, 2019, the patient grew Klebsiella pneumoniae and this happened to be the same bacteria obtained in prior 2 cultures earlier this year. Hospital course also was complicated by development of hypokalemia and hyponatremia, which were addressed appropriately with improvement. PHYSICAL EXAMINATION: VITAL SIGNS: Temperature 98.1, pulse 56, respiratory rate 18, SpO2 of 99% on room air, and blood pressure 153/61. GENERAL: Elderly female, in no obvious distress. Afebrile. Anicteric. Acyanotic. HEENT: Normocephalic, atraumatic. CARDIOVASCULAR: Regular rhythm and rate with normal heart sounds 1 and 2. RESPIRATORY: Fair air entry bilaterally with no obvious crackle or rhonchi or use of accessory muscles. GASTROINTESTINAL: Full, soft. Mild right upper quadrant tenderness. Bowel sound is normal. EXTREMITIES: Grossly normal looking, atraumatic, with no edema. DISPOSITION: Home with home health. CONDITION: Improved. FOLLOWUP: 1. Follow up with urologist in 3 to 4 weeks. 2. Follow up with PCP in 1 week. PCP is to repeat BMP and follow liver enzymes. DISCHARGE MEDICATIONS: 1. Levofloxacin 500 mg p.o. daily for 10 days. 2. Tramadol 50 mg t.i.d. 3. MiraLAX 17 g p.o. daily. 4. Protonix 40 mg daily. 5. Multivitamin one capsule daily. 6. Metoprolol 25 mg p.o. b.i.d. 7. Melatonin 5 mg p.o. daily at bedtime. 8. Lovastatin 50 mg p.o. daily. 9. Levothyroxine 75 mcg p.o. daily. 10. Gemfibrozil 600 mg p.o. daily. 11. Aspirin 81 mg p.o. daily. 12. Amlodipine 10 mg p.o. daily. 13. Tylenol 1000 mg q.6 p.r.n. 14. Conjugated estrogen one vaginal application every 2 weeks. Job ID: [id number]
== END 2019-02-10 17:48 | disposition home health service (06) ==
LOC: ERS 14:26 → T4-B 18:15
PROVIDERS: ADMIT Internal Medicine; ATTEND Internal Medicine
DX: N13.6 Pyonephrosis (principal); B96.1 Klebsiella pneumoniae [K. pneumoniae] as the cause of diseases classified elsewhere; R94.5 Abnormal results of liver function studies; E87.6 Hypokalemia; I10 Essential (primary) hypertension; R53.81 Other malaise; E03.9 Hypothyroidism, unspecified; E78.5 Hyperlipidemia, unspecified; Z66 Do not resuscitate; Z99.3 Dependence on wheelchair; Z88.5 Allergy status to narcotic agent; Z88.8 Allergy status to other drugs, medicaments and biological substances; Z79.82 Long term (current) use of aspirin; Z79.899 Other long term (current) drug therapy
CPT/HCPCS: 74176; 76705; 80048 ×2; 80053; 80076; 83605; 83690; 83735; 85025 ×3; 86850; 86900; 86901; 87040; 87086; 93005; 96361 ×4; 96365; 96366; 96367; 96375; 96376 ×4; 97139 ×4; 99285; G0378 ×3; 36415; 81003; 81015; A4353; J0692; J0696; J1650; J2270; J3490

== ENCOUNTER 2019-03-03 11:07 | Outpatient (CLI) | payer MEDICARE, MEDICAID ==
--- NOTE | 2019-03-03 12:57 | ULT ---
BILATERAL RENAL ULTRASOUND: 03/03/19 HISTORY: Nephrolithiasis, left flank pain. FINDINGS: The right kidney measures 10.8 cm in length and the left kidney measures 10.7 cm in length. No signif icant hydronephrosis seen. Multiple shadowing calculi are seen in the left kidney measuring 1.6 cm i n the mid portion and 2.4 cm in the inferolateral aspect. The right kidney is normal. Bilateral urete ral jets are present in the urinary bladder which appears grossly unremarkable. IMPRESSION: Left sided renal calculi without high grade obstruction. POS: [facility]
== END 2019-03-03 11:08 | disposition home or self-care (01) ==
LOC: SCSULT 11:07
PROVIDERS: ATTEND Urology
DX: N20.0 Calculus of kidney (principal)
CPT/HCPCS: 76770

== ENCOUNTER 2019-04-01 08:25 | Outpatient (CLI) | payer MEDICARE, MEDICAID ==
[2019-04-01 11:31] LABS: Hemoglobin 13.1 g/dL (12.0-16.0); Mean Corpuscular HGB CONC 32.9 g/dL (32.0-36.0); Mean Corpuscular Hemoglobin 28.6 pg (27.0-31.0); Mean Platelet Volume 9.1 fL (7.4-10.4); Platelet Count 285 thou/uL (130-400); RBC Distribution Width 13.6 % (11.5-14.5); Red Blood Cell (RBC) Count 4.58 mill/uL (4.20-5.40); White Blood Cell (WBC) Count 8.4 thou/uL (4.8-10.8)
[2019-04-01 11:39] LABS: Bilirubin Negative (Negative); Blood, Urine 1+ (Negative); Clarity Turbid (Clear); Glucose, Urine (Dipstick) Normal (Negative); Leukocyte 500 Leu/uL (Negative); Nitrite Negative (Negative); Protein, Urine (Dipstick) Negative (Neg-Trace); Urobilinogen Normal mg/dL (Less than 2); WBC/HPF 21-50 HPF (0-3)
[2019-04-01 11:40] LABS: Bacteria/HPF 1+ HPF (None Seen)
[2019-04-01 11:47] LABS: PTT 28.4 SEC (22.9-36.1); Prothrombin Time 13.2 SEC (12.0-14.7)
[2019-04-01 11:57] LABS: Anion Gap 13 mmol/L (10-20); BUN (Urea Nitrogen) 13 mg/dL (9.8-20.1); Calc. Creatinine Clearance 0 mL/min (70-130); Calcium 10.7 mg/dL (7.8-10.44); Carbon Dioxide 23 mmol/L (23-31); Chloride 101 mmol/L (98-107); Estimated GFR-MDRD 85; Glucose 116 mg/dL (83-110); Potassium 4.2 mmol/L (3.5-5.1); Sodium 133 mmol/L (136-145)
== END 2019-04-01 08:26 | disposition home or self-care (01) ==
LOC: LABBT 08:25
PROVIDERS: ATTEND Urology
DX: Z01.818 Encounter for other preprocedural examination (principal); N20.0 Calculus of kidney
CPT/HCPCS: 80048; 81001; 85027; 85610; 85730; 87077; 87086; 93005; 93010

== ENCOUNTER 2019-04-08 07:41 | Day surgery (SDC) | payer MEDICARE, MEDICAID ==
[2019-04-01 10:23] VITALS: BMI 24.4
[2019-04-08] MEDS ORDERED: Iothalamate Meglumine 60% 50 ML VIAL FS ONE (08:31)
[2019-04-08] MEDS ORDERED: B & O ONE (08:34)
[2019-04-08] MEDS ORDERED: Levofloxacin 500 mg/D5W 100 ml Premix Bag ONE (08:45)
[2019-04-08] MEDS ORDERED: ePHEDrine 50 MG/ML VIAL ONE (12:54)
[2019-04-08] MEDS ORDERED: Lidocaine 1% PF 5 ML VIAL ONE (12:54)
[2019-04-08] MEDS ORDERED: PROPOFOL 200 MG/20 ML VIAL ONE (12:54)
--- NOTE | 2019-04-08 13:28 | OP ---
DATE OF PROCEDURE: 04/08/2019 SERVICE: Urology. PREOPERATIVE DIAGNOSIS: Left nephrolithiasis. POSTOPERATIVE DIAGNOSIS: Left nephrolithiasis. PROCEDURES PERFORMED: Left ureteroscopy, laser lithotripsy, and placement of a 6 x 24 double-J stent. INDICATIONS FOR PROCEDURE: Ms. Ryan is an 83-year-old [place] female, who I have known for a long history of left-sided stones. Due to her age, we had elected not for pursuing any surgical intervention, but she became symptomatic and due to significant degree and quality of life, she elected to have ureteroscopy on the left side with removal of as much stone as possible. We discussed all risks and benefits, and she has agreed to proceed forward. DESCRIPTION OF PROCEDURE: After identification of armband and verification of consent, the patient was brought back to the operating room, where she underwent general anesthesia with endotracheal intubation. She was then placed in dorsal lithotomy position, prepped and draped in usual sterile fashion. After appropriate time-out, a lubricated 22-Macedonian rigid cystoscope was introduced per urethra into the bladder. Attention was turned toward the left ureteral orifice, which was cannulated with a 0.035 Sensor wire up to the level of the kidney. The cystoscope was then removed after draining the bladder, and a dual-lumen catheter advanced over the Sensor wire up to the level of the proximal ureter. An Amplatz Super Stiff wire was then fed through the second lumen up into the kidney and then the dual-lumen removed. The Sensor wire was then affixed to the drapes as a safety wire. An 11/13 x 28 cm ureteral access sheath was advanced over the Super Stiff wire up to the level the proximal ureter. The inner cannula and the Super Stiff wire were then removed leaving the outer sheath and Sensor wire in place as a safety wire. A flexible digital ureteroscope was then passed up the left ureteral access sheath up into the kidney. The stone was immediately apparent within the renal pelvis with a significant amount of inflammation and edema of the renal pelvis. Using the ball-tip 273 micron laser fiber dusting setting, the stone was completely fragmented. An additional lower pole stone was also identified, which was also fragmented. The remaining pieces were then popcorned until they were approximately a millimeter or less in size. All fragments were broken to this size. Thorough inspection of the kidney did not reveal any fragments that were over 1 to 2 mm in size with the vast majority being submillimeter or a millimeter only. I did feel that these should pass easily and due to the patient's age and to avoid prolonged anesthesia, I felt that a prolonged time in the operating room, basketing was probably unnecessary. Final pyeloscopy did not demonstrate any other large nephrolithiasis. Pull-back ureteroscopy was employed. No additional stones were found within the ureter. The ureteroscope was then removed along with the sheath, and the cystoscope was then backloaded over the Sensor wire back into the bladder. A 6 x 24 double-J stent was advanced over the Sensor wire up to the level of the kidney. The wire was removed leaving a partial curl in the kidney and a good curl in the bladder. The bladder was then emptied, and the cystoscope was removed. The patient was then awakened, taken to PACU for recovery in stable condition. COMPLICATIONS: None. ESTIMATED BLOOD LOSS: Minimal. RETAINED TUBES AND DRAINS: 6 x 24 double-J stent on the left with no string. SPECIMENS: None. DISPOSITION: The patient will be discharged home and follow up with me in approximately 1 week for cysto stent removal. Job ID: [id number]
== END 2019-04-08 12:35 | disposition home or self-care (01) ==
LOC: SDC 07:41
PROVIDERS: ATTEND Urology
PROC: 0TF48ZZ Fragmentation in Left Kidney Pelvis, Via Natural or Artificial Opening Endoscopic (ICD-10-PCS; principal; 2019-04-08)
PROC: 0T778DZ Dilation of Left Ureter with Intraluminal Device, Via Natural or Artificial Opening Endoscopic (ICD-10-PCS; 2019-04-08)
DX: N20.0 Calculus of kidney (principal); I10 Essential (primary) hypertension; E03.9 Hypothyroidism, unspecified; E78.5 Hyperlipidemia, unspecified; M19.90 Unspecified osteoarthritis, unspecified site; Z79.82 Long term (current) use of aspirin; Z79.899 Other long term (current) drug therapy; Z88.5 Allergy status to narcotic agent; Z88.8 Allergy status to other drugs, medicaments and biological substances
CPT/HCPCS: 52356; C1758; C1769; J1956

== ENCOUNTER 2019-04-12 03:29 | Observation (INO) | payer MEDICARE, MEDICAID ==
[2019-04-12 04:14] LABS: Hemoglobin 5.2 g/dL (12.0-16.0); Mean Corpuscular HGB CONC 33.2 g/dL (32.0-36.0); Mean Corpuscular Hemoglobin 29.2 pg (27.0-31.0); Mean Corpuscular Volume 87.8 fL (78.0-98.0); Mean Platelet Volume 5.5 fL (7.4-10.4); Platelet Count 118 thou/uL (130-400); Red Blood Cell (RBC) Count 1.79 mill/uL (4.20-5.40); White Blood Cell (WBC) Count 3.1 thou/uL (4.8-10.8)
[2019-04-12 04:29] LABS: ALT (SGPT) 12 U/L (8-55); AST (SGOT) 7 U/L (5-34); Albumin 1.2 g/dL (3.4-4.8); Alkaline Phosphatase 47 U/L (40-150); Anion Gap 4 mmol/L (10-20); BUN (Urea Nitrogen) Less than 4 mg/dL (9.8-20.1); Bilirubin, Total Less than 0.2 mg/dL (0.2-1.2); Calc. Creatinine Clearance 0 mL/min (70-130); Estimated GFR-MDRD Greater than 90; Globulin 0.8 g/dL (2.4-3.5); Sodium 144 mmol/L (136-145)
[2019-04-12 04:33] LABS: #Eosinphils 0.1 thou/uL (0.0-0.7); #Lymphocytes 1.1 thou/uL (1.20-3.40); #Monocytes 0.3 thou/uL (0.11-0.59); #Neutrophils 1.5 thou/uL (1.40-6.50); %Basophils 0.6 % (0.0-1.0); %Eosinophils 2.3 % (0.0-10.0); %Lymphocytes 36.7 % (21.0-51.0); %Monocytes 10.6 % (0.0-10.0); %Neutrophils 49.8 % (42.0-75.0); Platelet Morphology Comment Appears Decreased
[2019-04-12 04:35] LABS: Bacteria/HPF 1+ HPF (None Seen); Bilirubin Negative (Negative); Blood, Urine 2+ (Negative); Clarity Clear (Clear); Glucose, Urine (Dipstick) Normal (Negative); Leukocyte 500 Leu/uL (Negative); Nitrite Negative (Negative); Protein, Urine (Dipstick) 30 mg/dL (Neg-Trace); RBC/HPF 21-50 HPF (0-3); Squamous Epithelial 0-3 HPF (0-3); Urobilinogen Normal mg/dL (Less than 2); WBC/HPF 21-50 HPF (0-3)
[2019-04-12 04:43] LABS: Calcium 3.3 mg/dL (7.8-10.44); Carbon Dioxide 9 mmol/L (23-31); Chloride 132 mmol/L (98-107); Glucose 41 mg/dL (83-110); Potassium 1.1 mmol/L (3.5-5.1)
[2019-04-12 06:20] LABS: Mean Corpuscular HGB CONC 32.7 g/dL (32.0-36.0); Mean Corpuscular Hemoglobin 28.3 pg (27.0-31.0); Mean Corpuscular Volume 86.6 fL (78.0-98.0); Mean Platelet Volume 9.2 fL (7.4-10.4); Platelet Count 232 thou/uL (130-400); RBC Distribution Width 13.5 % (11.5-14.5); Red Blood Cell (RBC) Count 4.23 mill/uL (4.20-5.40)
[2019-04-12 06:40] LABS: Eosinophils 2 % (0-10); Lymphocytes 28 % (21-51); MDiff Complete? YES; Monocytes 13 % (0-10); Neutrophil 57 % (42-75); Platelet Morphology Comment Appears Adequate
[2019-04-12 06:42] LABS: ALT (SGPT) 40 U/L (8-55); AST (SGOT) 25 U/L (5-34); Albumin 3.7 g/dL (3.4-4.8); Alkaline Phosphatase 142 U/L (40-150); Anion Gap 11 mmol/L (10-20); BUN (Urea Nitrogen) 7 mg/dL (9.8-20.1); Bilirubin, Total 0.3 mg/dL (0.2-1.2); Calc. Creatinine Clearance 0 mL/min (70-130); Calcium 10.7 mg/dL (7.8-10.44); Carbon Dioxide 23 mmol/L (23-31); Chloride 104 mmol/L (98-107); Estimated GFR-MDRD Greater than 90; Glucose 113 mg/dL (83-110); Potassium 3.3 mmol/L (3.5-5.1); Protein, Total 6.7 g/dL (6.0-8.3); Sodium 135 mmol/L (136-145)
[2019-04-12 07:23] LABS: Troponin I Less than 0.010 ng/mL (< 0.028)
--- NOTE | 2019-04-12 07:34 | RAD ---
Portable frontal chest radiograph: 04/12/2019 COMPARISON: 08/31/2015 HISTORY: Cough, weakness, nausea FINDINGS: Lungs are clear. Stable prominence of the cardiac silhouette. Stable degenerative change of both shoulders present. IMPRESSION: No acute findings.
[2019-04-12 07:42] VITALS: BMI 23.4
[2019-04-12] MEDS ORDERED: Ondansetron ODT 4 MG TAB PO PRN (08:24)
[2019-04-12] MEDS ORDERED: Senokot S 8.6-50 MG TAB PO PRN (08:24)
[2019-04-12] MEDS ORDERED: Acetaminophen 325 MG TAB PO PRN (08:24)
[2019-04-12] MEDS ORDERED: Ondansetron PF 4 MG/2 ML Vial IVP PRN (08:24)
[2019-04-12] MEDS ORDERED: Sodium Chloride 0.9% 1,000 ML IV SCH (08:30)
[2019-04-12] MEDS: Amlodipine 10 MG TAB PO SCH ×2 (09:07→16:24)
[2019-04-12] MEDS: Metoprolol Tartrate 25 MG TAB PO SCH ×2 (09:08→20:02)
[2019-04-12] MEDS: Betamethasone 0.1% Cream 15 GM TUBE TOP SCH ×3 (10:14→19:56)
[2019-04-12] MEDS: Pantoprazole 40 MG VIAL IVP SCH (10:14)
[2019-04-12] MEDS: NS 0.9% w/ 40 MEQ KCL 1,000 ML IV SCH ×2 (10:14→23:00)
[2019-04-12] MEDS: cefTRIAXone\\ROCEPHIN 1 GM in Sodium Chloride 0.9% 100 ML IVPB SCH (10:14)
--- NOTE | 2019-04-12 10:39 | HP ---
PRIMARY CARE PHYSICIAN: Bacilio Gomes MD HISTORY OF PRESENT ILLNESS: Ms. Ryan is an 83-year-old female, who reported to the emergency room today for past medical history pertinent for hypothyroidism, hypertension, GERD, recurrent UTIs, kidney stones and has had a 3-day history of nausea, worsening weakness with cough following surgery for a kidney stone removal under general anesthesia last week. Daughter is primary caregiver and is a it business analyst for the patient as she does not speak much Latvian. Daughter reports that after she takes the Levaquin, she complains of an upset stomach and has been nauseated while she has been on it and has vomited several times. Daughter reports that she has been much weaker over the last several days and normal. Reports that she is typically bed-bound, but does get up with some assistance and transferred to her wheelchair, but the last couple of days, she has been unable to do that. Overnight, she complained of just generally not feeling well and asked her daughter to bring her to the emergency room to be checked out. CBC largely unremarkable. Sodium low at 135, potassium 3.3, glucose 113, calcium 10.7. Troponin x2 is less than 0.010 and is negative. It is noted that initial blood draw on record at 4 a.m. this morning must have been coagulated as it was repeated 2 hours later and lab values are remarkably different. Urine positive for protein, blood, leukocyte esterase at 500, red blood cells, white blood cells, crystals, and urine bacteria +1, that has been sent off for culture. The patient has a long history per daughter of chronic UTIs caused by the kidney stones. Dr. Tolliver reportedly decided that she needed the stones removed and took her to same-day surgery last week, where he performed a left ureteroscopy, laser lithotripsy and placement of a 6 x 24 double-J stent. Per daughter, she has an appointment on Friday of this week to get that stent removed. The patient was not given any medications in ER and admitted to the medical unit for further evaluation. PAST MEDICAL AND SURGICAL HISTORY: Nephrolithiasis, recurrent UTIs, hypertension, hypothyroidism, dyslipidemia. She has had a cholecystectomy, left knee surgery, hysterectomy, compression fracture involving T11, L2, L4 with diffuse osteopenia. She has had a prior cystoscopy with right ureteral stent. She is chronically bedridden with a wheelchair-bound status from July of 2014 and has had a left total knee replacement. FAMILY HISTORY: Mother in her 90s, father in his early 80s, both of natural causes. Code status is do not resuscitate. This was discussed with the patient at the bedside and her MPOA daughter at the bedside as well. SOCIAL HISTORY: The patient has no alcohol or drug history. Has no smoking history. MEDICATIONS: 1. Norvasc 10 mg p.o. daily. 2. Hydrocodone 5/325 one tablet p.o. q.6 hours. 3. Levothyroxine 75 mcg p.o. daily. 4. Levaquin 500 mg p.o. daily. The patient has taken 5 out of the 7. 5. Lovastatin 20 mg p.o. q.p.m. 6. Lopressor 25 mg p.o. b.i.d. 7. Protonix 40 mg p.o. daily. 8. Triamcinolone 0.5% cream topical b.i.d.. ALLERGIES: ZANTAC AND CODEINE. REVIEW OF SYSTEMS: CONSTITUTIONAL: Daughter reports that the patient has lost about 10 pounds in the last couple of weeks. Has been profoundly weak, unable to perform her normal activities. She said she does not want to do much other than lying in the bed. Denies any chest pain. Reports some shortness of breath, which is intermittent. GASTROINTESTINAL: Poor appetite, intermittent abdominal pain, nausea, vomiting. Reports that she had diarrhea initially after anesthesia last week, but that has since resolved. Last good bowel movement was yesterday. : Negative for urgency, frequency, or dysuria. MUSCULOSKELETAL: Generalized weakness. No swelling. No pain. All other systems reviewed and are negative unless mentioned in the HPI. PHYSICAL EXAMINATION: VITAL SIGNS: Temp is 98.4, pulse is 86, respirations are 16, pO2 saturations are 99% on room air, blood pressure is 155/71. GENERAL: The patient appears in no distress. She is alert and oriented to person, place, and time. HEENT: Head is atraumatic and normocephalic. Eyes, pupils are equally round and reactive to light. Extraocular muscles are intact. ENT; mouth exam is normal. Mucous membranes are dry. RESPIRATORY/CHEST: No respiratory distress. Breath sounds are clear. CARDIOVASCULAR: Regular heart rate and rhythm. Heart sounds are normal. ABDOMEN: Diffuse tenderness, but no rebound, no guarding. BACK: There is some mild tenderness with flexion. EXTREMITIES: Upper extremity, normal inspection, normal range of motion. Radial pulses equal bilaterally. Lower extremity, normal inspection, normal range of motion. Pedal pulses equal bilaterally. NEURO: Speech is clear. The patient is oriented to person, place, and time. There is no focal motor or sensory deficits. PSYCH: The patient is oriented to person, place, and time. She has a normal affect. IMAGING STUDIES: EKG in the emergency room shows a normal sinus rhythm, beats per minute 74. Has a left anterior fascicular block. ASSESSMENT AND PLAN: 1. Generalized weakness, dehydration, hypokalemia. We will replenish fluids, gentle hydration, normal saline with 40 of mEq of KCl over 70 mL per hour. We will ask PT, OT, Speech to evaluate the patient. Daughter states that they are really not interested in any inpatient rehab and would like to take the patient home with potentially prison home health, PT, OT if appropriate. 2. Urinalysis positive for leukocyte esterase, white blood cell count, and 1+ bacteria. This has been sent off for culture. The patient has not finished the Levaquin that Dr. Tolliver had wanted her to do for 7 days. Daughter is convinced that this medication is causing a lot of her symptoms and does not want her to have anymore. We have changed this to Rocephin 1 g q.24 hours pending the culture results. On her last culture, she was positive for Klebsiella, which was sensitive to Rocephin, so we will do this and await the culture results. 3. Some dysphagia. Per daughter, when she drinks water, she coughs and spit some of the water back up. So, she is n.p.o. until she is evaluated by Speech to make sure that she has not had any complications from the general surgery and intubation last week. Chest x-ray looks clear. There is no sign of any pneumonia or aspiration pneumonia. 4. Hypothyroidism. We will continue home medications. 5. Hypertension. We will trend. Restart home medications. 6. Dyslipidemia. We will restart home medications. 7. Deep venous thrombosis and gastrointestinal prophylaxis have been started. 8. Hospital course is dependent on clinical findings. Job ID: [id number]
[2019-04-12 11:06] LABS: Troponin I 0.011 ng/mL (< 0.028)
[2019-04-12] MEDS ORDERED: Simvastatin 5 MG TAB PO SCH (17:00)
[2019-04-12] MEDS: HYDROcodone/Acetaminophen 5/325 mg Tablet PO PRN (19:50)
[2019-04-13] MEDS: HYDROcodone/Acetaminophen 5/325 mg Tablet PO PRN ×2 (01:39→08:47)
[2019-04-13] MEDS ORDERED: Levothyroxine Sodium 75 MCG TAB PO SCH (06:00)
[2019-04-13 06:15] LABS: #Basophils 0.1 thou/uL (0.0-0.2); #Eosinphils 0.4 thou/uL (0.0-0.7); #Lymphocytes 2.9 thou/uL (1.20-3.40); #Monocytes 0.9 thou/uL (0.11-0.59); #Neutrophils 3.4 thou/uL (1.40-6.50); %Basophils 0.8 % (0.0-1.0); %Eosinophils 4.8 % (0.0-10.0); %Lymphocytes 37.9 % (21.0-51.0); %Monocytes 11.4 % (0.0-10.0); Hemoglobin 11.6 g/dL (12.0-16.0); Mean Corpuscular HGB CONC 32.8 g/dL (32.0-36.0); Mean Corpuscular Hemoglobin 28.3 pg (27.0-31.0); Mean Corpuscular Volume 86.2 fL (78.0-98.0); Mean Platelet Volume 8.5 fL (7.4-10.4); Platelet Count 274 thou/uL (130-400); RBC Distribution Width 13.5 % (11.5-14.5); Red Blood Cell (RBC) Count 4.09 mill/uL (4.20-5.40); White Blood Cell (WBC) Count 7.6 thou/uL (4.8-10.8)
[2019-04-13 06:24] LABS: Anion Gap 10 mmol/L (10-20); BUN (Urea Nitrogen) 6 mg/dL (9.8-20.1); Calc. Creatinine Clearance 63 mL/min (70-130); Calcium 9.7 mg/dL (7.8-10.44); Carbon Dioxide 21 mmol/L (23-31); Chloride 107 mmol/L (98-107); Estimated GFR-MDRD Greater than 90; Glucose 92 mg/dL (83-110); Potassium 4.3 mmol/L (3.5-5.1); Sodium 134 mmol/L (136-145)
[2019-04-13 07:42] VITALS: BP 92/54; TEMP 98.1
[2019-04-13] MEDS: Metoprolol Tartrate 25 MG TAB PO SCH (08:50)
[2019-04-13] MEDS: Amlodipine 10 MG TAB PO SCH (08:50)
[2019-04-13] MEDS: Betamethasone 0.1% Cream 15 GM TUBE TOP SCH (08:51)
--- NOTE | 2019-04-13 08:51 | PDOC.HOSPP ---
- Subjective Encounter Date: 04/13/19 Encounter Time: 08:49 Subjective: alert, improved - Objective Vital Signs & Weight: Vital Signs (12 hours) Temp Pulse Resp BP Pulse Ox 04/13/19 07:40 98.1 F 64 20 92/54 L 97 04/13/19 04:30 162/64 H 04/13/19 04:00 97.6 F 56 L 16 170/68 H 96 04/13/19 00:00 97.9 F 57 L 16 145/72 H 97 Weight Weight 120 lb I&O: 04/12/19 04/13/19 04/14/19 06:59 06:59 06:59 Intake Total 2430 Balance 2430 Result Diagrams: 04/13/19 05:47 04/13/19 05:47 Hospitalist ROS - Medication Medications: Active Medications Generic Name Dose Route Start Last Admin Trade Name Freq PRN Reason Stop Dose Admin Hydrocodone Bitart/Acetaminophen 1 tab 04/12/19 08:24 04/13/19 01:39 [place] 5/325 PO 1 tab Q4H PRN Administration Moderate Pain (4-6) Amlodipine Besylate 10 mg 04/12/19 09:00 04/12/19 16:24 Norvasc PO 10 mg DAILY LAWRENCE Administration Betamethasone Valerate 0 gm 04/12/19 09:00 04/12/19 19:56 Valisone 0.1% Cream TOP Not Given BID LAWRENCE Ceftriaxone Sodium 1 gm/ 100 mls @ 200 mls/hr 04/12/19 10:00 04/12/19 10:14 Sodium Chloride IVPB 100 mls 1000 LAWRENCE Administration Potassium Chloride/Sodium Chloride 1,000 mls @ 75 mls/hr 04/12/19 09:00 04/12 23:00 Ns 0.9% W/ 40 Meq Kcl IV 1,000 mls .[id number] LAWRENCE Administration Levothyroxine Sodium 75 mcg 04/13/19 06:00 04/13/19 05:29 Synthroid PO 75 mcg 0600 LAWRENCE Administration Metoprolol Tartrate 25 mg 04/12/19 09:00 04/12/19 20:02 Lopressor PO 25 mg BID LAWRENCE Administration Pantoprazole Sodium 40 mg 04/12/19 09:00 04/12/19 10:14 Protonix IVP 40 mg DAILY LAWRENCE Administration Simvastatin 10 mg 04/12/19 17:00 04/12/19 16:24 Zocor PO 10 mg QPM-WM LAWRENCE Administration - Exam Neck: no JVD Heart: RRR, no murmur Respiratory: CTAB Gastrointestinal: soft, normal bowel sounds Extremities: no edema Hosp A/P (1) Weakness Code(s): R53.1 - WEAKNESS Status: Acute (2) Nephrolithiasis Status: Chronic (3) Urinary tract infection Status: Acute Qualifiers: Urinary tract infection type: site unspecified (4) Hypertension Code(s): I10 - ESSENTIAL (PRIMARY) HYPERTENSION Status: Chronic Qualifiers: Hypertension type: essential hypertension Qualified Code(s): I10 - Essential (primary) hypertension - Plan on iv rocephin, urine C&S no growth, discuss weth family
[2019-04-13] MEDS: Pantoprazole 40 MG VIAL IVP SCH (08:57)
[2019-04-13] MEDS ORDERED: Polyethylene Glycol 3350 17 GM Packet PO SCH (09:00)
[2019-04-13] MEDS ORDERED: Preparation H Ointment 57 gram tube TOP SCH (09:00)
[2019-04-13] MEDS: cefTRIAXone\\ROCEPHIN 1 GM in Sodium Chloride 0.9% 100 ML IVPB SCH (09:00)
--- NOTE | 2019-04-13 11:06 | DIS ---
DATE OF ADMISSION: 04/12/2019 DATE OF DISCHARGE: 04/13/2019 PRIMARY CARE PROVIDER: Dr. Bacilio Gomes. DISPOSITION: Discharged home. FINAL DIAGNOSES: Urinary tract infection, nephrolithiasis, nausea and vomiting, weakness, hypertension. DISCHARGE MEDICATIONS: 1. MiraLAX 17 g in water daily. 2. Amlodipine 10 mg a day. 3. [place] 5/325 one every 8 hours as needed for pain. 4. Synthroid 75 mcg a day. 5. Protonix 40 mg a day. 6. Metoprolol 25 mg twice a day. 7. Lovastatin 20 mg a day. ALLERGIES: RANITIDINE, CODEINE. PENDING AT THE TIME OF DISCHARGE: Her urine culture is no growth at 1200 hours. It remains to be seen whether there is further change. CODE STATUS: DNAR. DIET: As tolerated. HOSPITAL COURSE: The patient admitted to [facility] through [facility] with weakness, nausea. The patient had been on Levaquin for a urinary tract infection. The patient's daughter thought that the symptoms were concurrent with the Levaquin. Her laboratory; white count was 7.0, hemoglobin 12.0, platelet count 232,000. Chemistries; 135 sodium, 3.3 potassium and followup 4.3, chloride 104, CO2 of 23, BUN 7, creatinine 0.61. Liver function tests normal. As I mentioned before, the urine culture was negative. The patient has an appointment with Dr. Tolliver at 3 o'clock this afternoon. She is being discharged off the Levaquin, having received 2 doses of IV Rocephin for followup with Dr. Tolliver this afternoon. No formal consultations. No procedures. Job ID: [id number]
--- NOTE | 2019-04-14 00:07 | CON ---
DATE OF CONSULTATION: 04/12/2019 CONSULTING SERVICE: Family Medicine. REASON FOR CONSULTATION: Recent ureteroscopy with generalized weakness. HISTORY OF PRESENT ILLNESS: Mrs. Ryan is an 83-year-old female who is well known to me for a previous history of nephrolithiasis and recurrent urinary tract infections. She recently underwent a left-sided ureteroscopy with removal of a large amount of stone material and placement of ureteral stent. I had already discussed with the daughter who is her primary caregiver that the patient would probably experience generalized weakness as she did with her last surgery and may potentially have a significant amount of discomfort. I did put her on levofloxacin around the time of her procedure given chronic asymptomatic bacteriuria. She had polymicrobial growth on preoperative urine culture. The patient was taking the antibiotics for the surgery, but after surgery stated that she became increasingly more nauseated with the antibiotics and could not tolerate them anymore. With significant nausea and vomiting and poor p.o. intake, she became extremely weak and dehydrated. She started having malaise and not feeling well and came into the emergency room where she was admitted to the hospital. She currently still has her stent in which is causing a significant amount of discomfort. After receiving IV fluids and IV antibiotics, she states she is feeling much better. She does wish to have her stent removed, which is currently scheduled to be removed this Friday. ALLERGIES: 1. ZANTAC. 2. CODEINE. 3. INTOLERANCE TO LEVOFLOXACIN WITHOUT ALLERGY. HOME MEDICATIONS: 1. Norvasc. 2. Hydrocodone 5/325 mg. 3. Levothyroxine. 4. Levaquin. 5. Lovastatin. 6. Lopressor. 7. Protonix. 8. Triamcinolone cream. 9. . 10. MiraLAX. PAST MEDICAL HISTORY: 1. Nephrolithiasis. 2. Recurrent UTIs. 3. Hypertension. 4. Hypothyroidism. 5. Dyslipidemia. 6. Significant weakness. 7. Wheelchair confined and bedridden. 8. Osteoarthritis. PAST SURGICAL HISTORY: 1. Ureteroscopy. 2. Left knee replacement. 3. Cholecystectomy. 4. Hysterectomy. FAMILY HISTORY: Not significant for nephrolithiasis. SOCIAL HISTORY: The patient denies any alcohol, drug history, or illicit smoking history. She lives with her daughter. REVIEW OF SYSTEMS: A 12-point review of systems reviewed and negative other than what was commented on the HPI. PHYSICAL EXAMINATION: VITAL SIGNS: Temperature 98.4, pulse 86, respirations 16, blood pressure 155/71, and saturation 99% on room air. GENERAL: No apparent distress. Appears a little uncomfortable, but is answering questions appropriately. Appears stated age. HEENT: Normocephalic, atraumatic. Pupils are symmetric and round. Sclerae are nonicteric. Moist mucous membranes. Trachea is midline. CARDIOVASCULAR: Regular rate and rhythm. Normal S1 and S2, symmetric pulses. CHEST: No increased work of breathing. Clear anteriorly. Symmetric expansion of the lungs. ABDOMEN: Soft, mildly tender to palpation especially on the left. No organomegaly. Positive bowel sounds. No rebound or guarding. Mild suprapubic tenderness. : Deferred at this time. EXTREMITIES: No clubbing, cyanosis, or edema. SKIN: Warm and dry. No rashes or lesions. Poor turgor. MUSCULOSKELETAL: No joint deformities or joint erythema noted. There is a knee replacement on the left knee with well-healed scar. Range of motion is somewhat limited, but the patient is moving all extremities equally. NEUROLOGIC: Cranial nerves 2 through 12 are grossly intact. No focal or sensory motor deficits identified. PSYCHIATRIC: Alert, oriented x3. Appropriate mood and affect. LABORATORY EVALUATION: The full set of labs are in the [facility] system, which I have reviewed. Of note, the patient's white count is 7.6 with a hemoglobin of 11.6, creatinine of 0.61. Troponins are normal. ASSESSMENT AND PLAN: An 83-year-old female with large burden of left-sided stone, status post left-sided ureteroscopy with removal of majority of the stone. The patient is having stent discomfort and likely was having intolerance to medication resulting in poor p.o. intake, resulting in generalized weakness and dehydration. She has responded well to IV antibiotics and IV fluids. I am not sure she needs much more antibiotics as the patient has been already on a prolonged course of antibiotics and think this can probably be stopped, although I would recommend continuation of antibiotics at least until the stent removal at which point, we will go ahead and stop the antibiotics. She can see me tomorrow in the office at which point, I will be happy to remove her stent and then she can be followed up on an outpatient basis. At the current time, I would not recommend any further interventions. Job ID: [id number]
--- NOTE | 2019-04-17 12:31 | EKG ---
Test Reason : Blood Pressure : / mmHG Vent. Rate : 074 BPM Atrial Rate : 074 BPM P-R Int : 170 ms QRS Dur : 106 ms QT Int : 378 ms P-R-T Axes : 040 -52 064 degrees QTc Int : 419 ms Sinus rhythm with marked sinus arrhythmia Left anterior fascicular block Left ventricular hypertrophy with repolarization abnormality Abnormal ECG Confirmed by ADEOLA BRAGA M.D. ([id number]), supervising editor trailer KRISTINA ENRIQUEZ ([id number]) on 04/17/2019 12:30:54 PM Referred By: Confirmed By:ADEOLA BRAGA M.D.
== END 2019-04-13 15:34 | disposition home or self-care (01) ==
LOC: ERS 03:29 → T4-B 07:40
PROVIDERS: ADMIT Hospitalist; ATTEND Hospitalist
DX: N39.0 Urinary tract infection, site not specified (principal); N20.0 Calculus of kidney; R53.1 Weakness; E03.9 Hypothyroidism, unspecified; I10 Essential (primary) hypertension; K21.9 Gastro-esophageal reflux disease without esophagitis; E78.5 Hyperlipidemia, unspecified; E86.0 Dehydration; E87.6 Hypokalemia; R13.10 Dysphagia, unspecified; Z66 Do not resuscitate; Z79.2 Long term (current) use of antibiotics; Z79.891 Long term (current) use of opiate analgesic; Z79.899 Other long term (current) drug therapy; Z88.5 Allergy status to narcotic agent; Z88.8 Allergy status to other drugs, medicaments and biological substances; Z99.3 Dependence on wheelchair
CPT/HCPCS: 51701; 71045; 80048; 80053 ×2; 82274; 82962; 84484 ×2; 85025 ×3; 86850; 86900; 86901; 87086; 93005; 96365; 96366; 96367; 96375; 97139 ×2; 99285; G0378 ×3; 36415; 36416; 81003; 81015; C9113; J0696; J3480; J3490

== ENCOUNTER 2019-05-25 10:57 | Outpatient (CLI) | payer MEDICARE, OTHER ==
--- NOTE | 2019-05-25 11:46 | ULT ---
RENAL ULTRASOUND: INDICATIONS: Nephrolithiasis. Left ureteroscopy and lithotripsy 04/08/2019. FINDINGS: The right kidney measures 10.8 cm in length and appears unremarkable. No hydronephrosis. The left kidney measures 10 cm. No hydronephrosis. Echogenic focus in the mid pole left kidney measur es 0.7 cm, suggesting calculus. A large echogenicity lateral left kidney measuring 1 to 2 cm suggests a retained calculus. The visualized urinary bladder is unremarkable but only mildly distended. IMPRESSION: Echogenicity suggests left renal calculi. Correlate with plain film or CT. POS: [facility]
== END 2019-05-25 10:58 | disposition home or self-care (01) ==
LOC: SCSULT 10:57
PROVIDERS: ATTEND Urology
DX: N20.0 Calculus of kidney (principal); R93.422 Abnormal radiologic findings on diagnostic imaging of left kidney
CPT/HCPCS: 76770

== ENCOUNTER 2023-02-06 23:37 | Inpatient (IN) | payer OTHER, MEDICAID ==
[2023-02-07 01:53] VITALS: BMI 25.0
[2023-02-07] MEDS ORDERED: Acetaminophen 325 MG TAB PO PRN (02:13)
[2023-02-07] MEDS ORDERED: HYDROcodone/Acetaminophen 5/325 mg Tablet PO PRN (02:13)
[2023-02-07] MEDS ORDERED: Ondansetron ODT 4 MG TAB PO PRN (02:13)
[2023-02-07] MEDS ORDERED: Lactated Ringer's 1,000 ML IV SCH (02:30)
[2023-02-07 05:41] LABS: #Monocytes 0.6 thou/uL (0.11-0.59); #Neutrophils 3.6 thou/uL (1.40-6.50); %Basophils 0.4 % (0.0-1.0); %Eosinophils 0.2 % (0.0-10.0); %Lymphocytes 20.8 % (21.0-51.0); %Monocytes 10.6 % (0.0-10.0); %Neutrophils 67.4 % (42.0-75.0); Hemoglobin 11.2 g/dL (12.0-16.0); Mean Corpuscular HGB CONC 32.1 g/dL (32.0-36.0); Mean Corpuscular Hemoglobin 29.9 pg (27.0-31.0); Mean Corpuscular Volume 93.3 fl (78.0-98.0); Mean Platelet Volume 10.8 fL (7.4-10.4); Platelet Count 258 10x3/uL (130-400); RBC Distribution Width 14.9 % (11.5-14.5); Red Blood Cell (RBC) Count 3.74 mill/uL (4.20-5.40); White Blood Cell (WBC) Count 5.3 10x3/uL (4.8-10.8)
[2023-02-07 06:03] LABS: ALT (SGPT) 48 U/L (8-55); AST (SGOT) 61 U/L (5-34); Albumin 3.6 g/dL (3.4-4.8); Alkaline Phosphatase 118 U/L (40-110); Anion Gap 11 mmol/L (10-20); BUN (Urea Nitrogen) 7 mg/dL (9.8-20.1); Bilirubin, Total 0.2 mg/dL (0.2-1.2); Calc. Creatinine Clearance 64 mL/min (70-130); Calcium 9.3 mg/dL (7.8-10.44); Carbon Dioxide 23 mmol/L (23-31); Chloride 105 mmol/L (98-107); Estimated GFR 89; Globulin 2.9 g/dL (2.4-3.5); Glucose 88 mg/dL (83-110); Potassium 3.8 mmol/L (3.5-5.1); Protein, Total 6.5 g/dL (5.8-8.1); Sodium 135 mmol/L (136-145)
[2023-02-07] MEDS ORDERED: Famotidine 20 MG TAB PO SCH (09:00)
[2023-02-07] MEDS: cefTRIAXone\\ROCEPHIN 1 GM in Sodium Chloride 0.9% 100 ML IVPB SCH (10:28)
[2023-02-07] MEDS: Doxycycline 100 MG CAP PO SCH ×2 (10:28→20:32)
[2023-02-07] MEDS ORDERED: Estrogens, Conjugated 30 GM TUBE VAG SCH (12:00)
[2023-02-07] MEDS ORDERED: Aspirin 81 mg Enteric Coated Tablet PO SCH (12:30)
[2023-02-07] MEDS ORDERED: Amlodipine 10 MG TAB PO SCH (12:30)
[2023-02-07] MEDS ORDERED: Metoprolol Tartrate 25 MG TAB PO SCH (12:30)
[2023-02-07] MEDS: Melatonin 3 MG TAB PO SCH (20:32)
[2023-02-07] MEDS: Metoprolol Tartrate 25 MG TAB PO SCH (20:33)
[2023-02-07] MEDS: Simvastatin 10 MG TAB PO SCH (20:33)
[2023-02-08] MEDS: Levothyroxine Sodium 88 MCG TAB PO SCH (05:36)
[2023-02-08 06:06] LABS: #Eosinphils 0.1 thou/uL (0.0-0.7); #Monocytes 0.7 thou/uL (0.11-0.59); #Neutrophils 2.4 thou/uL (1.40-6.50); %Basophils 0.6 % (0.0-1.0); %Eosinophils 1.5 % (0.0-10.0); %Lymphocytes 39.4 % (21.0-51.0); %Neutrophils 45.1 % (42.0-75.0); Mean Corpuscular HGB CONC 32.3 g/dL (32.0-36.0); Mean Corpuscular Hemoglobin 30.1 pg (27.0-31.0); Mean Corpuscular Volume 93.4 fl (78.0-98.0); Mean Platelet Volume 10.7 fL (7.4-10.4); Platelet Count 239 10x3/uL (130-400); RBC Distribution Width 14.8 % (11.5-14.5); Red Blood Cell (RBC) Count 3.65 mill/uL (4.20-5.40); White Blood Cell (WBC) Count 5.2 10x3/uL (4.8-10.8)
[2023-02-08 06:26] LABS: Anion Gap 11 mmol/L (10-20); BUN (Urea Nitrogen) 9 mg/dL (9.8-20.1); Calc. Creatinine Clearance 65 mL/min (70-130); Calcium 9.3 mg/dL (7.8-10.44); Carbon Dioxide 24 mmol/L (23-31); Chloride 103 mmol/L (98-107); Estimated GFR 89; Glucose 95 mg/dL (83-110); Potassium 3.5 mmol/L (3.5-5.1); Sodium 134 mmol/L (136-145)
[2023-02-08] MEDS ORDERED: BETAINE HCL 300 MG PO SCH (09:00)
[2023-02-08] MEDS ORDERED: Amlodipine 5 MG TAB PO SCH (09:00)
[2023-02-08] MEDS: cefTRIAXone\\ROCEPHIN 1 GM in Sodium Chloride 0.9% 100 ML IVPB SCH (09:12)
[2023-02-08] MEDS: Polyethylene Glycol 3350 17 GM Packet PO SCH (09:13)
[2023-02-08] MEDS: Aspirin 81 mg Enteric Coated Tablet PO SCH (09:14)
[2023-02-08] MEDS: Amlodipine 5 MG TAB PO SCH (09:14)
[2023-02-08] MEDS: Doxycycline 100 MG CAP PO SCH ×2 (09:14→20:20)
[2023-02-08] MEDS: Metoprolol Tartrate 25 MG TAB PO SCH ×2 (09:14→20:20)
[2023-02-08] MEDS: Senokot S 8.6-50 MG TAB PO PRN (13:54)
[2023-02-08] MEDS: Simvastatin 10 MG TAB PO SCH (20:20)
[2023-02-08] MEDS: Melatonin 3 MG TAB PO SCH (20:20)
[2023-02-08] MEDS ORDERED: Estrogens, Conjugated 30 GM TUBE VAG SCH (21:00)
[2023-02-09] MEDS: Senokot S 8.6-50 MG TAB PO PRN ×2 (05:34→20:39)
[2023-02-09] MEDS: Levothyroxine Sodium 88 MCG TAB PO SCH (05:34)
[2023-02-09] MEDS: Amlodipine 5 MG TAB PO SCH (09:26)
[2023-02-09] MEDS: Aspirin 81 mg Enteric Coated Tablet PO SCH (09:26)
[2023-02-09] MEDS: Doxycycline 100 MG CAP PO SCH ×2 (09:26→20:39)
[2023-02-09] MEDS: Metoprolol Tartrate 25 MG TAB PO SCH ×2 (09:26→20:39)
[2023-02-09] MEDS: cefTRIAXone\\ROCEPHIN 1 GM in Sodium Chloride 0.9% 100 ML IVPB SCH (09:40)
[2023-02-09] MEDS: Polyethylene Glycol 3350 17 GM Packet PO SCH (09:45)
[2023-02-09] MEDS: Simvastatin 10 MG TAB PO SCH (20:39)
[2023-02-09] MEDS: Melatonin 3 MG TAB PO SCH (20:39)
[2023-02-09] MEDS ORDERED: Estradiol 0.01% Vaginal Cream 42.5 gm Tube VAG SCH (21:00)
[2023-02-10] MEDS: Levothyroxine Sodium 88 MCG TAB PO SCH (05:37)
[2023-02-10] MEDS: cefTRIAXone\\ROCEPHIN 1 GM in Sodium Chloride 0.9% 100 ML IVPB SCH (09:02)
[2023-02-10] MEDS: Doxycycline 100 MG CAP PO SCH (09:02)
[2023-02-10] MEDS: Amlodipine 5 MG TAB PO SCH (09:02)
[2023-02-10] MEDS: Polyethylene Glycol 3350 17 GM Packet PO SCH (09:03)
[2023-02-10] MEDS: Aspirin 81 mg Enteric Coated Tablet PO SCH (09:03)
[2023-02-10] MEDS: Metoprolol Tartrate 25 MG TAB PO SCH (09:03)
[2023-02-10 14:11] VITALS: BP 145/70; TEMP 97.8
== END 2023-02-10 16:50 | disposition home or self-care (01) | DRG 689 ==
LOC: SURG B 23:37 → OBSVTOIN 02-07 13:04
PROVIDERS: ADMIT Student in an Organized Health Care Education/Training Program; ATTEND Internal Medicine
DX: N39.0 Urinary tract infection, site not specified (principal); J18.9 Pneumonia, unspecified organism; Z16.11 Resistance to penicillins; E87.1 Hypo-osmolality and hyponatremia; Z96.652 Presence of left artificial knee joint; E86.0 Dehydration; R74.01 Elevation of levels of liver transaminase levels; B96.1 Klebsiella pneumoniae [K. pneumoniae] as the cause of diseases classified elsewhere; I10 Essential (primary) hypertension; K21.9 Gastro-esophageal reflux disease without esophagitis; E03.9 Hypothyroidism, unspecified; D64.9 Anemia, unspecified; E78.5 Hyperlipidemia, unspecified; Z90.49 Acquired absence of other specified parts of digestive tract; Z99.3 Dependence on wheelchair; Z79.899 Other long term (current) drug therapy; Z79.82 Long term (current) use of aspirin; Z79.890 Hormone replacement therapy; Z88.1 Allergy status to other antibiotic agents; Z88.2 Allergy status to sulfonamides; Z88.8 Allergy status to other drugs, medicaments and biological substances; Z88.6 Allergy status to analgesic agent; Z90.710 Acquired absence of both cervix and uterus
CPT/HCPCS: 36415; 74177; 74181; 80048; 80053; 81001; 83690; 83735; 85025; 87077; 87086; 87186; 96361; 96365; 96375; G0378; J0696; J2405; J3490; J7120; Q0162

== ENCOUNTER 2023-07-12 12:54 | Emergency (ER) | payer OTHER, MEDICAID, MEDICARE ==
[2023-07-12 14:19] LABS: #Basophils 0.1 thou/uL (0.0-0.2); #Eosinphils 0.1 thou/uL (0.0-0.7); #Monocytes 0.7 thou/uL (0.11-0.59); #Neutrophils 6.5 thou/uL (1.40-6.50); %Basophils 0.5 % (0.0-1.0); %Eosinophils 0.8 % (0.0-10.0); %Lymphocytes 19.4 % (21.0-51.0); %Monocytes 7.8 % (0.0-10.0); %Neutrophils 71.1 % (42.0-75.0); Hematocrit 38.2 % (36.0-47.0); Hemoglobin 12.7 g/dL (12.0-16.0); Mean Corpuscular HGB CONC 33.2 g/dL (32.0-36.0); Mean Corpuscular Hemoglobin 30.2 pg (27.0-31.0); Mean Platelet Volume 10.7 fL (7.4-10.4); Platelet Count 261 10x3/uL (130-400); RBC Distribution Width 15.6 % (11.5-14.5); White Blood Cell (WBC) Count 9.1 10x3/uL (4.8-10.8)
[2023-07-12] MEDS ORDERED: Morphine 4 MG/ML VIAL ONE (14:25)
[2023-07-12] MEDS ORDERED: Iopamidol-370 76% 500 ML MDV (1 ML CHARGE) ONE (14:32)
[2023-07-12 14:49] LABS: Bacteria/HPF 4+ HPF (None Seen); Bilirubin Negative (Negative); Blood, Urine Trace (Negative); CAUTI Indications for Culture Pelvic or flank pain; Clarity Turbid (Clear); Glucose, Urine (Dipstick) Normal (Negative); Ketone, Urine Negative (Negative); Leukocyte 500 Leu/uL (Negative); Nitrite Negative (Negative); Protein, Urine (Dipstick) 10 mg/dL (Neg-Trace); Squamous Epithelial 0-3 HPF (0-3); Urobilinogen Normal mg/dL (Less than 2); WBC/HPF Greater than 50 HPF (0-3); pH, Urine 6.5 (5.0-9.0)
[2023-07-12 14:50] LABS: Urine Culture Reflex Yes Yes
[2023-07-12 14:53] LABS: ALT (SGPT) 8 U/L (8-55); AST (SGOT) 20 U/L (5-34); Albumin 4.1 g/dL (3.4-4.8); Alkaline Phosphatase 82 U/L (40-110); Anion Gap 13 mmol/L (10-20); BUN (Urea Nitrogen) 13 mg/dL (9.8-20.1); Bilirubin, Total 0.4 mg/dL (0.2-1.2); Calc. Creatinine Clearance 0 mL/min (70-130); Calcium 10.4 mg/dL (7.8-10.44); Carbon Dioxide 23 mmol/L (23-31); Chloride 100 mmol/L (98-107); Estimated GFR 82; Globulin 3.4 g/dL (2.4-3.5); Glucose 120 mg/dL (83-110); Lipase 10 U/L (8-78); Potassium 4.2 mmol/L (3.5-5.1); Protein, Total 7.5 g/dL (5.8-8.1); Sodium 132 mmol/L (136-145)
[2023-07-12 14:56] LABS: Troponin I Less than 0.010 ng/mL (< 0.028)
[2023-07-12] MEDS ORDERED: cefTRIAXone (ROCEPHIN) 1 GM VIAL ONE (16:17)
[2023-07-12] MEDS ORDERED: Sodium Chloride 0.9% 100 ML ONE (16:17)
== END 2023-07-12 16:36 | disposition home or self-care (01) ==
LOC: ERS 12:54
DX: N10 Acute pyelonephritis (principal); E03.9 Hypothyroidism, unspecified; K21.9 Gastro-esophageal reflux disease without esophagitis; I10 Essential (primary) hypertension; Z79.899 Other long term (current) drug therapy; Z79.82 Long term (current) use of aspirin
CPT/HCPCS: 74177; 80053; 81001; 83690; 84484; 85025; 87077; 87086; 87186; 96365; 96375; J0696; J2270; J3490; Q9967

== ENCOUNTER 2023-07-15 13:33 | Emergency (ER) | payer OTHER, MEDICAID, MEDICARE ==
[~2023-07-15 13:33] MED LIST: Iopamidol-370 76% 500 ML MDV (1 ML CHARGE) ONE
[2023-07-15] MEDS ORDERED: Morphine 4 MG/ML VIAL ONE (14:32)
[2023-07-15] MEDS ORDERED: Sodium Chloride 0.9% 100 ML ONE (14:33)
[2023-07-15] MEDS ORDERED: Piperacillin/Tazobactam 4.5 GM VIAL ONE (14:33)
[2023-07-15 14:38] LABS: #Basophils 0.1 thou/uL (0.0-0.2); #Eosinphils 0.1 thou/uL (0.0-0.7); #Monocytes 0.7 thou/uL (0.11-0.59); #Neutrophils 4.9 thou/uL (1.40-6.50); %Basophils 0.8 % (0.0-1.0); %Eosinophils 1.5 % (0.0-10.0); %Lymphocytes 21.8 % (21.0-51.0); %Monocytes 9.8 % (0.0-10.0); %Neutrophils 65.7 % (42.0-75.0); Hemoglobin 12.4 g/dL (12.0-16.0); Mean Corpuscular HGB CONC 32.6 g/dL (32.0-36.0); Mean Corpuscular Volume 91.8 fl (78.0-98.0); Mean Platelet Volume 10.7 fL (7.4-10.4); Platelet Count 278 10x3/uL (130-400); RBC Distribution Width 15.6 % (11.5-14.5); Red Blood Cell (RBC) Count 4.14 mill/uL (4.20-5.40); White Blood Cell (WBC) Count 7.5 10x3/uL (4.8-10.8)
[2023-07-15 15:06] LABS: ALT (SGPT) 16 U/L (8-55); AST (SGOT) 24 U/L (5-34); Albumin 3.6 g/dL (3.4-4.8); Alkaline Phosphatase 91 U/L (40-110); Anion Gap 9 mmol/L (10-20); BUN (Urea Nitrogen) 11 mg/dL (9.8-20.1); Bilirubin, Total 0.3 mg/dL (0.2-1.2); Calc. Creatinine Clearance 0 mL/min (70-130); Calcium 10.3 mg/dL (7.8-10.44); Carbon Dioxide 27 mmol/L (23-31); Chloride 104 mmol/L (98-107); Estimated GFR 86; Globulin 3.2 g/dL (2.4-3.5); Glucose 101 mg/dL (83-110); Potassium 4.3 mmol/L (3.5-5.1); Protein, Total 6.8 g/dL (5.8-8.1); Sodium 136 mmol/L (136-145)
[2023-07-15 16:01] LABS: Bacteria/HPF None Seen HPF (None Seen); Bilirubin Negative (Negative); Blood, Urine Negative (Negative); CAUTI Indications for Culture Dysuria,urgency,freq; Clarity Clear (Clear); Glucose, Urine (Dipstick) Normal (Negative); Ketone, Urine Negative (Negative); Leukocyte 75 Leu/uL (Negative); Nitrite Negative (Negative); Protein, Urine (Dipstick) Negative (Neg-Trace); RBC/HPF 0-3 HPF (0-3); Squamous Epithelial 0-3 HPF (0-3); Urobilinogen Normal mg/dL (Less than 2); WBC/HPF 0-3 HPF (0-3)
[2023-07-15 16:03] LABS: Urine Culture Reflex No No
== END 2023-07-15 18:33 | disposition home or self-care (01) ==
LOC: ERS 13:33
DX: N39.0 Urinary tract infection, site not specified (principal); I10 Essential (primary) hypertension; E78.5 Hyperlipidemia, unspecified; E03.9 Hypothyroidism, unspecified; K21.9 Gastro-esophageal reflux disease without esophagitis; Z79.82 Long term (current) use of aspirin; Z79.899 Other long term (current) drug therapy
CPT/HCPCS: 36415; 74177; 80053; 81001; 83605; 85025; 87040; 87077; 87086; 87186; 93005; 96365; 96366; 96375; J2270; J2543; J3490; Q9967

== ENCOUNTER 2023-07-24 14:26 | Emergency (ER) | payer OTHER, MEDICAID ==
[2023-07-24 14:53] LABS: #Basophils 0.1 thou/uL (0.0-0.2); #Eosinphils 0.1 thou/uL (0.0-0.7); #Monocytes 0.8 thou/uL (0.11-0.59); #Neutrophils 4.5 thou/uL (1.40-6.50); %Basophils 0.7 % (0.0-1.0); %Lymphocytes 27.2 % (21.0-51.0); %Monocytes 10.2 % (0.0-10.0); %Neutrophils 60.5 % (42.0-75.0); Hematocrit 37.4 % (36.0-47.0); Hemoglobin 12.4 g/dL (12.0-16.0); Mean Corpuscular HGB CONC 33.2 g/dL (32.0-36.0); Mean Corpuscular Hemoglobin 30.1 pg (27.0-31.0); Mean Corpuscular Volume 90.8 fl (78.0-98.0); Mean Platelet Volume 10.6 fL (7.4-10.4); Platelet Count 242 10x3/uL (130-400); RBC Distribution Width 15.9 % (11.5-14.5); Red Blood Cell (RBC) Count 4.12 mill/uL (4.20-5.40); White Blood Cell (WBC) Count 7.4 10x3/uL (4.8-10.8)
[2023-07-24 14:59] LABS: Bacteria/HPF None Seen HPF (None Seen); Bilirubin Negative (Negative); Blood, Urine Negative (Negative); CAUTI Indications for Culture Pelvic or flank pain; Clarity Clear (Clear); Glucose, Urine (Dipstick) Normal (Negative); Ketone, Urine Negative (Negative); Leukocyte 25 Leu/uL (Negative); Nitrite Negative (Negative); Protein, Urine (Dipstick) Negative (Neg-Trace); RBC/HPF 0-3 HPF (0-3); Specific Gravity, Urine 1.004 (1.002-1.036); Squamous Epithelial None Seen HPF (0-3); Urobilinogen Normal mg/dL (Less than 2); WBC/HPF 0-3 HPF (0-3); pH, Urine 7.5 (5.0-9.0)
[2023-07-24 15:02] LABS: Urine Culture Reflex No No
[2023-07-24 15:19] LABS: ALT (SGPT) 12 U/L (8-55); AST (SGOT) 22 U/L (5-34); Albumin 4.3 g/dL (3.4-4.8); Alkaline Phosphatase 113 U/L (40-110); Anion Gap 12 mmol/L (10-20); BUN (Urea Nitrogen) 12 mg/dL (9.8-20.1); Bilirubin, Total 0.4 mg/dL (0.2-1.2); Calc. Creatinine Clearance 0 mL/min (70-130); Calcium 10.6 mg/dL (7.8-10.44); Carbon Dioxide 26 mmol/L (23-31); Chloride 102 mmol/L (98-107); Estimated GFR 84; Globulin 3.4 g/dL (2.4-3.5); Glucose 105 mg/dL (83-110); Potassium 3.7 mmol/L (3.5-5.1); Protein, Total 7.7 g/dL (5.8-8.1); Sodium 136 mmol/L (136-145)
[2023-07-24 16:26] LABS: Actual Bicarbonate (HCO3v) 24.9 mEq/L (22-28); Base Excess 0.8 mEq/L (-2.0 to +3.0); pH (venous) 7.433 (7.32-7.43)
[2023-07-24 16:27] LABS: Calcium, Ionized (venous) 1.26 mmol/L (1.16-1.32); Potassium (VBG) 3.6 mmol/L (3.70-5.30)
== END 2023-07-24 17:58 | disposition home or self-care (01) ==
LOC: ERS 14:26
DX: K59.00 Constipation, unspecified (principal); I10 Essential (primary) hypertension
CPT/HCPCS: 36415; 80053; 81001; 82805; 83605; 85025; 87040; 87086; 99284

== ENCOUNTER 2024-05-29 22:25 | Inpatient (IN) | payer OTHER ==
[2024-05-29] MEDS ORDERED: Ondansetron PF 4 MG/2 ML Vial ONE (23:49)
[2024-05-29 23:52] LABS: #Basophils 0.03 10x3/uL (0.0-0.2); #Eosinophils Less than 0.03 10x3/uL (0.0-0.7); %Basophils 0.3 % (0.0-1.0); %Eosinophils 0.2 % (0.0-10.0); %Lymphocytes 7.8 % (21.0-51.0); %Monocytes 3.5 % (0.0-10.0); %Neutrophils 87.8 % (42.0-75.0); Hematocrit 36.9 % (36.0-47.0); Hemoglobin 11.9 g/dL (12.0-16.0); Mean Corpuscular HGB CONC 32.2 g/dL (32.0-36.0); Mean Corpuscular Hemoglobin 29.2 pg (27.0-31.0); Mean Corpuscular Volume 90.4 fL (78.0-98.0); Mean Platelet Volume 10.5 fL (7.4-10.4); Platelet Count 341 10x3/uL (130-400); RBC Distribution Width 15.9 % (11.5-14.5); Red Blood Cell (RBC) Count 4.08 mill/uL (4.20-5.40)
[2024-05-30 00:06] LABS: ALT (SGPT) 10 U/L (8-55); AST (SGOT) 26 U/L (5-34); Alkaline Phosphatase 85 U/L (40-110); Anion Gap 15 mmol/L (10-20); BUN (Urea Nitrogen) 18 mg/dL (9.8-20.1); Bilirubin, Total 0.4 mg/dL (0.2-1.2); Calc. Creatinine Clearance 0 mL/min (70-130); Calcium 10.1 mg/dL (7.8-10.44); Carbon Dioxide 23 mmol/L (23-31); Chloride 102 mmol/L (98-107); Estimated GFR 84; Globulin 4.1 g/dL (2.4-3.5); Glucose 137 mg/dL (83-110); Lipase 28 U/L (8-78); Magnesium 2.2 mg/dL (1.6-2.6); Protein, Total 8.1 g/dL (5.8-8.1); Sodium 136 mmol/L (136-145)
[2024-05-30 00:12] LABS: Troponin I Less than 0.010 ng/mL (< 0.028)
[2024-05-30 02:40] LABS: Bilirubin Negative (Negative); Blood, Urine Negative (Negative); CAUTI Indications for Culture Pelvic or flank pain; Clarity Clear (Clear); Glucose, Urine (Dipstick) Normal (Negative); Ketone, Urine Negative (Negative); Leukocyte 75 Leu/uL (Negative); Nitrite Negative (Negative); Protein, Urine (Dipstick) Negative (Neg-Trace); RBC/HPF 0-3 HPF (0-3); Specific Gravity, Urine 1.029 (1.002-1.036); Squamous Epithelial 0-3 HPF (0-3); Urobilinogen Normal mg/dL (Less than 2)
[2024-05-30 02:41] LABS: Bacteria/HPF 1+ HPF (None Seen)
[2024-05-30 02:42] LABS: Urine Culture Reflex No No
[2024-05-30] MEDS ORDERED: Benzocaine 20% Spray 60 ML CAN ONE (06:19)
[2024-05-30] MEDS: Sodium Chloride 0.9% 1,000 ML IV SCH ×2 (08:39→10:03)
[2024-05-30 09:48] VITALS: BMI 20.7
[2024-05-30] MEDS: Enoxaparin 40 MG (0.4 mL) SYRINGE SC SCH (10:38)
[2024-05-30] MEDS: Famotidine/PF 20 mg/2ml Vial SLOW IVP SCH (10:38)
[2024-05-30] MEDS ORDERED: Iopamidol 370 76% 100 ML VIAL ONE (12:32)
[2024-05-31] MEDS: Melatonin 3 MG TAB PO SCH ×2 (03:13→20:32)
[2024-05-31 06:26] LABS: #Basophils 0.04 10x3/uL (0.0-0.2); #Eosinophils Less than 0.03 10x3/uL (0.0-0.7); %Basophils 0.5 % (0.0-1.0); %Eosinophils 0.2 % (0.0-10.0); %Lymphocytes 18.4 % (21.0-51.0); %Monocytes 13.9 % (0.0-10.0); %Neutrophils 66.8 % (42.0-75.0); Hematocrit 35.9 % (36.0-47.0); Hemoglobin 11.7 g/dL (12.0-16.0); Mean Corpuscular HGB CONC 32.6 g/dL (32.0-36.0); Mean Corpuscular Hemoglobin 28.9 pg (27.0-31.0); Mean Corpuscular Volume 88.6 fL (78.0-98.0); Mean Platelet Volume 10.6 fL (7.4-10.4); Platelet Count 289 10x3/uL (130-400); RBC Distribution Width 16.2 % (11.5-14.5); Red Blood Cell (RBC) Count 4.05 mill/uL (4.20-5.40)
[2024-05-31 06:45] LABS: Anion Gap 12 mmol/L (10-20); BUN (Urea Nitrogen) 9 mg/dL (9.8-20.1); Calc. Creatinine Clearance 55 mL/min (70-130); Calcium 9.5 mg/dL (7.8-10.44); Carbon Dioxide 24 mmol/L (23-31); Chloride 104 mmol/L (98-107); Estimated GFR 88; Glucose 85 mg/dL (83-110); Sodium 137 mmol/L (136-145)
[2024-05-31] MEDS: Potassium Chloride 20 MEQ in Premix 1 BAG IVPB SCH (09:16)
[2024-05-31] MEDS ORDERED: Labetalol HCl 100 MG/20 ML VIAL SLOW IVP PRN ×2 (11:36→11:38)
[2024-05-31] MEDS: D5 1/2 NS w/20 mEq KCL 1,000 ML IV SCH (13:39)
[2024-05-31] MEDS: Potassium Phosphate 30 MMOL in Sodium Chloride 0.9% 250 ML 250 ML IVPB SCH (13:40)
[2024-05-31] MEDS: Fleet Saline Enema 133 ML BOT PR SCH (13:40)
[2024-05-31] MEDS: Pantoprazole 40 MG VIAL IVP SCH (20:32)
[2024-06-01] MEDS: Levothyroxine Sodium 88 MCG TAB PO SCH (05:26)
[2024-06-01 05:39] LABS: #Basophils 0.04 10x3/uL (0.0-0.2); %Basophils 0.5 % (0.0-1.0); %Eosinophils 0.4 % (0.0-10.0); %Lymphocytes 26.6 % (21.0-51.0); %Monocytes 15.8 % (0.0-10.0); %Neutrophils 56.3 % (42.0-75.0); Hematocrit 37.8 % (36.0-47.0); Hemoglobin 12.4 g/dL (12.0-16.0); Mean Corpuscular HGB CONC 32.8 g/dL (32.0-36.0); Mean Corpuscular Hemoglobin 29.4 pg (27.0-31.0); Mean Corpuscular Volume 89.6 fL (78.0-98.0); Mean Platelet Volume 10.9 fL (7.4-10.4); Platelet Count 359 10x3/uL (130-400); RBC Distribution Width 16.2 % (11.5-14.5); Red Blood Cell (RBC) Count 4.22 mill/uL (4.20-5.40)
[2024-06-01 05:49] LABS: Anion Gap 13 mmol/L (10-20); BUN (Urea Nitrogen) 11 mg/dL (9.8-20.1); Calc. Creatinine Clearance 48 mL/min (70-130); Calcium 9.6 mg/dL (7.8-10.44); Carbon Dioxide 24 mmol/L (23-31); Chloride 105 mmol/L (98-107); Estimated GFR 86; Glucose 132 mg/dL (83-110); Phosphorus 1.6 mg/dL (2.3-4.7); Potassium 3.4 mmol/L (3.5-5.1); Sodium 139 mmol/L (136-145)
[2024-06-01] MEDS ORDERED: MD-Gastroview 120 ML BOT ONE (09:14)
[2024-06-01] MEDS: Potassium Phosphate 30 MMOL in Sodium Chloride 0.9% 250 ML 250 ML IVPB SCH (09:36)
[2024-06-01] MEDS: Magnesium 2 GM/50 ML(in water) 2 GM in Premix 1 BAG IVPB SCH (15:06)
[2024-06-01] MEDS: Folic Acid 1 MG TAB PO SCH (20:57)
[2024-06-01] MEDS: Metoprolol Tartrate 25 MG TAB PO SCH (20:57)
[2024-06-01] MEDS: Cyanocobalamin (Vitamin B-12) 1,000 MCG TAB PO SCH (20:57)
[2024-06-01] MEDS: Cholecalciferol 1,000 UNITS (25 MCG) TAB PO SCH (20:57)
[2024-06-01] MEDS: Thiamine 100 MG TAB PO SCH (20:57)
[2024-06-02] MEDS: Amlodipine 5 MG TAB PO PRN (05:04)
[2024-06-02 05:48] LABS: #Basophils Less than 0.03 10x3/uL (0.0-0.2); %Basophils 0.2 % (0.0-1.0); %Eosinophils 0.4 % (0.0-10.0); %Lymphocytes 23.1 % (21.0-51.0); %Monocytes 15.3 % (0.0-10.0); %Neutrophils 60.5 % (42.0-75.0); Hematocrit 38.4 % (36.0-47.0); Hemoglobin 12.4 g/dL (12.0-16.0); Mean Corpuscular HGB CONC 32.3 g/dL (32.0-36.0); Mean Corpuscular Hemoglobin 28.4 pg (27.0-31.0); Mean Corpuscular Volume 87.9 fL (78.0-98.0); Mean Platelet Volume 10.9 fL (7.4-10.4); Platelet Count 296 10x3/uL (130-400); RBC Distribution Width 16.2 % (11.5-14.5); Red Blood Cell (RBC) Count 4.37 mill/uL (4.20-5.40)
[2024-06-02 06:04] LABS: Anion Gap 10 mmol/L (10-20); BUN (Urea Nitrogen) 11 mg/dL (9.8-20.1); Calc. Creatinine Clearance 47 mL/min (70-130); Calcium 9.9 mg/dL (7.8-10.44); Carbon Dioxide 29 mmol/L (23-31); Chloride 104 mmol/L (98-107); Estimated GFR 85; Glucose 109 mg/dL (83-110); Phosphorus 1.7 mg/dL (2.3-4.7); Potassium 3.2 mmol/L (3.5-5.1); Sodium 140 mmol/L (136-145)
[2024-06-02] MEDS: Calcium Carbonate 600 MG + Vit D TAB PO SCH (09:00)
[2024-06-02] MEDS: Pantoprazole DR 40 MG TAB PO SCH (09:00)
[2024-06-02] MEDS: Aspirin 81 mg Enteric Coated Tablet PO SCH (09:00)
[2024-06-02] MEDS: Potassium Phosphate 30 MMOL in Sodium Chloride 0.9% 250 ML 250 ML IVPB SCH ×2 (12:00→19:51)
[2024-06-02] MEDS: K-Phos Neutral 250 MG TAB PO SCH (12:01)
[2024-06-03 05:58] LABS: #Basophils Less than 0.03 10x3/uL (0.0-0.2); %Basophils 0.1 % (0.0-1.0); %Eosinophils 0.9 % (0.0-10.0); %Lymphocytes 28.8 % (21.0-51.0); %Monocytes 15.3 % (0.0-10.0); %Neutrophils 54.5 % (42.0-75.0); Hematocrit 35.8 % (36.0-47.0); Hemoglobin 11.7 g/dL (12.0-16.0); Mean Corpuscular HGB CONC 32.7 g/dL (32.0-36.0); Mean Corpuscular Hemoglobin 28.6 pg (27.0-31.0); Mean Corpuscular Volume 87.5 fL (78.0-98.0); Mean Platelet Volume 10.5 fL (7.4-10.4); Platelet Count 296 10x3/uL (130-400); RBC Distribution Width 16.2 % (11.5-14.5); Red Blood Cell (RBC) Count 4.09 mill/uL (4.20-5.40)
[2024-06-03 06:21] LABS: Anion Gap 13 mmol/L (10-20); BUN (Urea Nitrogen) 10 mg/dL (9.8-20.1); Calc. Creatinine Clearance 47 mL/min (70-130); Calcium 9.2 mg/dL (7.8-10.44); Carbon Dioxide 27 mmol/L (23-31); Chloride 104 mmol/L (98-107); Estimated GFR 85; Glucose 111 mg/dL (83-110); Phosphorus 3.1 mg/dL (2.3-4.7); Potassium 3.5 mmol/L (3.5-5.1); Sodium 140 mmol/L (136-145)
[2024-06-03 08:39] VITALS: BP 155/85; TEMP 97.8
[2024-06-03] MEDS: FLU (Fluad Triv) TS24-25 (65UP)/MF59C/PF 45 MCG/0.5 ML Syringe IM ONE (12:04)
== END 2024-06-03 14:11 | disposition home health service (06) | DRG 390 ==
LOC: ERS 22:25 → SURG B 05-30 06:02 → OBSVTOIN 05-31 11:55
PROVIDERS: ADMIT Surgery; ATTEND Internal Medicine
DX: K56.600 Partial intestinal obstruction, unspecified as to cause (principal); K59.00 Constipation, unspecified; E87.6 Hypokalemia; E83.42 Hypomagnesemia; E83.39 Other disorders of phosphorus metabolism; K21.9 Gastro-esophageal reflux disease without esophagitis; I12.9 Hypertensive chronic kidney disease with stage 1 through stage 4 chronic kidney disease, or unspecified chronic kidney disease; N18.2 Chronic kidney disease, stage 2 (mild); E03.9 Hypothyroidism, unspecified; D63.1 Anemia in chronic kidney disease; M81.0 Age-related osteoporosis without current pathological fracture; K83.8 Other specified diseases of biliary tract; Z66 Do not resuscitate; Z88.8 Allergy status to other drugs, medicaments and biological substances; Z88.1 Allergy status to other antibiotic agents; Z79.899 Other long term (current) drug therapy; Z90.710 Acquired absence of both cervix and uterus; Z90.49 Acquired absence of other specified parts of digestive tract
CPT/HCPCS: 36415; 71045; 74018; 74177; 74250; 80048; 80053; 81001; 83605; 83690; 83735; 84100; 84484; 85025; 90653; 93005; 96372; 96374; 96375; 96376; G0378; J1650; J2405; J2470; J3475; J3480; J3490; J7030; J7050; Q9963; Q9967

== ENCOUNTER 2024-07-11 09:38 | Emergency (ER) | payer OTHER, MEDICARE ==
[2024-07-11 10:18] LABS: #Basophils 0.05 10x3/uL (0.0-0.2); %Basophils 0.6 % (0.0-1.0); %Lymphocytes 31.1 % (21.0-51.0); %Monocytes 7.6 % (0.0-10.0); %Neutrophils 58.5 % (42.0-75.0); Hematocrit 37.2 % (36.0-47.0); Hemoglobin 12.2 g/dL (12.0-16.0); Mean Corpuscular HGB CONC 32.8 g/dL (32.0-36.0); Mean Corpuscular Hemoglobin 28.9 pg (27.0-31.0); Mean Corpuscular Volume 88.2 fL (78.0-98.0); Mean Platelet Volume 10.5 fL (7.4-10.4); Platelet Count 314 10x3/uL (130-400); RBC Distribution Width 17.2 % (11.5-14.5); Red Blood Cell (RBC) Count 4.22 mill/uL (4.20-5.40)
[2024-07-11 10:33] LABS: ALT (SGPT) 10 U/L (8-55); AST (SGOT) 22 U/L (5-34); Alkaline Phosphatase 79 U/L (40-110); Anion Gap 12 mmol/L (10-20); BUN (Urea Nitrogen) 12 mg/dL (9.8-20.1); Bilirubin, Total 0.4 mg/dL (0.2-1.2); Calc. Creatinine Clearance 0 mL/min (70-130); Calcium 10.4 mg/dL (7.8-10.44); Carbon Dioxide 23 mmol/L (23-31); Chloride 106 mmol/L (98-107); Estimated GFR 85; Globulin 3.5 g/dL (2.4-3.5); Glucose 122 mg/dL (83-110); Lipase 17 U/L (8-78); Protein, Total 7.5 g/dL (5.8-8.1); Sodium 137 mmol/L (136-145)
[2024-07-11 11:06] LABS: Bilirubin Negative (Negative); Blood, Urine Negative (Negative); CAUTI Indications for Culture Dysuria,urgency,freq; Clarity Clear (Clear); Glucose, Urine (Dipstick) Normal (Negative); Ketone, Urine Negative (Negative); Leukocyte 75 Leu/uL (Negative); Nitrite Negative (Negative); Protein, Urine (Dipstick) Negative (Neg-Trace); RBC/HPF 0-3 HPF (0-3); Specific Gravity, Urine 1.002 (1.002-1.036); Squamous Epithelial 0-3 HPF (0-3); Urobilinogen Normal mg/dL (Less than 2); WBC/HPF 0-3 HPF (0-3); pH, Urine 7.5 (5.0-9.0)
[2024-07-11 11:08] LABS: Bacteria/HPF Rare-Few HPF (None Seen)
[2024-07-11 11:09] LABS: Urine Culture Reflex No No
[2024-07-11] MEDS ORDERED: Iopamidol-370 76% 500 ML MDV (1 ML CHARGE) ONE (11:21)
== END 2024-07-11 11:53 | disposition home or self-care (01) ==
LOC: ERS 09:38
DX: R19.7 Diarrhea, unspecified (principal); I10 Essential (primary) hypertension; E78.5 Hyperlipidemia, unspecified; R54 Age-related physical debility
CPT/HCPCS: 36415; 71045; 74177; 80053; 81001; 83605; 83690; 85025; 87428; 93005